=== PATIENT | female | born 1965 | race Caucasian/White ===

== ENCOUNTER → 2018-09-19 | Outpatient (CLI) | payer OTHER ==
[~2018-09-19] MED LIST: HYDR25CA92 PO
--- NOTE | 2018-09-19 21:22 | Diagnostic Imaging Report ---
INDICATION: Palpable lump in the left breast. Correlation is made with prior mammogram from 01/16/2016 and 12/17/2014. 2-D and 3-D bilateral diagnostic mammography was performed. The current study was also evaluated with a Computer Aided Detection (CAD) system. FINDINGS: Scattered fibroglandular densities are identified bilaterally. Intramammary lymph nodes in the upper-outer aspects of the left breast appear stable. No abnormalities identified at the area of the BB marker marking the palpable abnormality in the upper outer left breast. Even so ultrasound of this area will be performed. Right breast is unremarkable. There is no spiculated mass or malignant appearing microcalcifications. Axillae are unremarkable. IMPRESSION: No mammographic features suspicious for malignancy are identified. Even so, directed sonographic interrogation of the area of palpable abnormality in the upper outer left breast is recommended and will be performed today. ACR BI-RADS Category 0: Incomplete. (Needs additional imaging evaluation). Result letter will be mailed to the patient. Note: At least 10% of breast cancer is not imaged by mammography. Dictated by: Dictated on workstation # [id number]
--- NOTE | 2018-09-19 21:27 | Diagnostic Imaging Report ---
INDICATION: Palpable lump and pain in the left breast. Correlation is made with diagnostic mammogram earlier same day. FINDINGS: Sonographic interrogation of the upper-outer left breast at the area of pain and palpable abnormality was performed. No sonographic abnormality at this location is identified. There are intramammary lymph nodes in the upper-outer left breast at 01:30 location measuring 7-8 mm in size, seen previously. No new abnormality is seen. IMPRESSION: No sonographic abnormality is identified in the area of pain and palpable abnormality. There are benign-appearing intramammary lymph nodes in the upper-outer left breast. Continued clinical and self breast exam is recommended to confirm stability of the area of palpable abnormality. ACR BI-RADS Category 2: Benign findings. Dictated by: Dictated on workstation # [id number]
== END ==
LOC: RAD 13:42
PROVIDERS: ATTEND Nurse Practitioner Family
DX: N63.20 Unspecified lump in the left breast, unspecified quadrant (principal); N64.4 Mastodynia
CPT/HCPCS: 76642; 77066

== ENCOUNTER → 2020-01-01 | Outpatient (CLI) | payer OTHER ==
--- NOTE | 2020-01-01 21:11 | Diagnostic Imaging Report ---
INDICATION: Follow-up left breast lump. COMPARISON: Correlation is made with prior mammograms of 09/19/2018 and 01/16/2016. EXAMINATION: 2D and 3D bilateral diagnostic mammography was performed with CAD. The current study was also evaluated with a Computer Aided Detection (CAD) system. FINDINGS: Scattered fibroglandular densities are identified, bilaterally. There are intraparenchymal lymph nodes in the outer left breast, stable. No new mass or malignant appearing microcalcifications are seen. There are biopsy changes of right breast with marker clip in place. Axillae are unremarkable. IMPRESSION: No mammographic features suspicious for malignancy are identified. ACR BI-RADS Category 2: Benign findings. Result letter will be mailed to the patient. Note: At least 10% of breast cancer is not imaged by mammography. Dictated by: Dictated on workstation # [id number]
== END ==
LOC: RAD 13:54
PROVIDERS: ATTEND Nurse Practitioner Family
DX: N63.20 Unspecified lump in the left breast, unspecified quadrant (principal)
CPT/HCPCS: 77062; 77066

== ENCOUNTER 2020-06-29 18:44 | Inpatient (IN) | payer SELFPAY ==
[~2020-06-29] VITALS: Ht 147 cm; Wt 148.2 kg
[2020-06-29] MEDS ORDERED: NS IV 1000 ML 1,000 ML IV SCH (18:53)
[2020-06-29] MEDS ORDERED: ONDANSETRON 4 MG (ZOFRAN) ORAL DISSOLVE TAB SL STA (19:24)
--- NOTE | 2020-06-29 19:35 | Diagnostic Imaging Report ---
INDICATION: Covid positive, dizziness, nausea, inability to stay awake. TECHNIQUE: Single view chest, 7:15 p.m. CORRELATION STUDY: 03/26/2013. FINDINGS: Heart size is somewhat obscured but appears to be enlarged perhaps slightly more pronounced from prior. Vasculature also slightly more prominent. Asymmetric parenchymal densities are again demonstrated. This is most noticeable over the left lower lung plascencia with obscuration of the left heart border. A linear density with underlying lucency appears stable. Unchanged elevated right diaphragm. IMPRESSION: 1. Cardiac enlargement. This appears likely relatively stable with vascular appearing slightly more prominent from prior. 2. Asymmetric parenchymal densities are present, most noticeable over the left mid to lower lung field. A large portion is likely chronic, perhaps chronic atelectatic lung. Some of this does appear to be likely reflective of a new area of infiltrate particularly in the mid and left lower lung field. This is again unknown and atypical in appearance. Continued short-term follow-up imaging is recommended. Dictated by: Dictated on workstation # [id number]
--- NOTE | 2020-06-29 19:50 | ED Respiratory ---
General Chief Complaint: General Problems/Pain Stated Complaint: COVID +/DIZZINESS/NAUSEATED/INABLITY TO STAY AWAKE Nursing Triage Note: PT ARRIVES TO THE ER TODAY WITH C/O DIZZINESS AND SOA AND IS COVID 19 POSITIVE OF SATURDAY THIS WEEK History of Present Illness Date Seen by Provider: Jun 29, 2020 Time Seen by Provider: 19:10 Initial Comments 55-year-old female presents with generalized weakness, dizziness and shortness of air. She reports being tested for COVID on 06/27/20 and positive. Her roommate is positive as well. She denies any vomiting but has mild nausea. She has not been eating or drinking because she is so tired. She denies any history of chronic lung problems, however she did smoke in the past but hasn't for approximately 5 years. She does drink beer, daily approx 6 on average. Timing/Duration: getting worse Prior Episodes/Possible Cause: no prior episodes Modifying Factors: Improves With Albuterol Nebulizer (last 0800) Associated Symptoms: No chest pain/soreness; cough, dizziness; No facial pain, No fever/chills; headache; No lightheadedness; muscle aches, nasal congestion; No nasal drainage; shortness of breath; No sinus infection, No sore throat, No wheezing Allergies and Home Medications Allergies Coded Allergies: IV Dye, Iodine Containing (Unverified Allergy, Mild, 08/09/08) Pentazocine (Unverified Allergy, Mild, 08/09/08) Rofecoxib (Unverified Allergy, Mild, 08/09/08) Home Medications Hydroxyzine Pamoate 25 Mg Capsule, 1 EA PO QID PRN for ANXIETY FOR ITCHING Prescribed by: VONDA CRUZ on 02/10/15 1444 Patient Home Medication List Home Medication List Reviewed: Yes Review of Systems Review of Systems Constitutional: see HPI; No chills, No diaphoresis; dizziness, malaise, w eakness EENTM: see HPI, ear discharge Respiratory: see HPI, cough, dyspnea on exertion, phlegm, short of breath Cardiovascular: no symptoms reported, see HPI; No chest pain Gastrointestinal: see HPI; No diarrhea; loss of appetite, nausea; No vomiting Musculoskeletal: no symptoms reported, see HPI Skin: no symptoms reported, see HPI All Other Systems Reviewed Negative Unless Noted: Yes Past Ujslsri-Rqxvlp-Twzhck Hx Past Med/Social Hx: Reviewed Nursing Past Med/Soc Hx, Reviewed and Corrections made Patient Social History Alcohol Use: Regular Use Alcohol Beverage of Choice: Beer Recreational Drug Use: No 2nd Hand Smoke Exposure: No Recent Foreign Travel: No Contact w/Someone Who Travel: No Recent Infectious Disease Expo: Yes Immunizations Up To Date Tetanus Booster (TDap): More than 5yrs PED Vaccines UTD: Yes Seasonal Allergies Seasonal Allergies: Yes Past Medical History Surgeries: Yes (ANAL FISTULA, OVARIAN CYST, RECONSTRUCTIVE THROAT SURGERY A CHILD) Respiratory: No Cardiac: Yes Hypertension Neurological: No Reproductive Disorders: No Female Reproductive Disorders: Ovarian Cyst Sexually Transmitted Disease: No HIV/AIDS: No Genitourinary: No Gastrointestinal: No Musculoskeletal: Yes (ARTHRITIS/DEGENERATIVE IN HER BACK) Endocrine: Yes (HX OF NON INSULIN DEP) HEENT: No Cancer: No Psychosocial: Yes (alcohol dependence) Integumentary: No Blood Disorders: No Family Medical History No Pertinent Family Hx Physical Exam Vital Signs - First Documented 06/29/20 19:07 Temp 37.0 Pulse 92 Resp 20 B/P (MAP) 115/90 (98) Pulse Ox 94 O2 Delivery Room Air Capillary Refill : Less Than 3 Seconds Height: 5'7" Weight: 308lbs. oz. 139.824125do; 67.00 BMI Method:Stated General Appearance: WD/WN, mild distress, obese Eyes: Bilateral Eye Normal Inspection, Bilateral Eye PERRL, Bilateral Eye EOMI HEENT: PERRL/EOMI, normal ENT inspection, TMs normal, pharynx normal Neck: non-tender, full range of motion, supple, normal inspection Respiratory: chest non-tender, no respiratory distress, decreased breath sounds; No crackles, No rhonchi, No wheezing Cardiovascular: normal peripheral pulses, regular rate, rhythm, no edema Gastrointestinal: normal bowel sounds, non tender, soft Extremities: normal range of motion, non-tender, normal inspection, normal capillary refill Neurologic/Psychiatric: no motor/sensory deficits, alert, normal mood/affect, oriented x 3 Skin: normal color, warm/dry Lymphatic: no adenopathy Progress/Results/Core Measures Suspected Sepsis Recent Fever Within 48 Hours: Yes Infection Criteria Present: Documented Infection New/Unexplained Altered Menta: No Sepsis Screen: Possible Severe Sepsis Risk SIRS Temperature: Pulse: 92 Respiratory Rate: 20 Laboratory Tests 06/29/20 19:40: White Blood Count 6.0 Blood Pressure 115 /90 Mean: 98 Laboratory Tests 06/29/20 19:40: Creatinine 0.80, Platelet Count 221, Total Bilirubin 0.9 Results/Orders Lab Results Laboratory Tests Test 06/29/20 19:40 Range/Units White Blood Count 6.0 4.3-11.0 10^3/uL Red Blood Count 4.48 3.80-5.11 10^6/uL Hemoglobin 14.4 11.5-16.0 g/dL Hematocrit 42 35-52 % Mean Corpuscular Volume 93 80-99 fL Mean Corpuscular Hemoglobin 32 25-34 pg Mean Corpuscular Hemoglobin Concent 35 32-36 g/dL Red Cell Distribution Width 12.8 10.0-14.5 % Platelet Count 221 130-400 10^3/uL Mean Platelet Volume 9.4 9.0-12.2 fL Immature Granulocyte % (Auto) 0 % Neutrophils (%) (Auto) 57 42-75 % Lymphocytes (%) (Auto) 26 12-44 % Monocytes (%) (Auto) 16 H 0-12 % Eosinophils (%) (Auto) 0 0-10 % Basophils (%) (Auto) 0 0-10 % Neutrophils # (Auto) 3.4 1.8-7.8 10^3/uL Lymphocytes # (Auto) 1.6 1.0-4.0 10^3/uL Monocytes # (Auto) 1.0 0.0-1.0 10^3/uL Eosinophils # (Auto) 0.0 0.0-0.3 10^3/uL Basophils # (Auto) 0.0 0.0-0.1 10^3/uL Immature Granulocyte # (Auto) 0.0 0.0-0.1 10^3/uL Erythrocyte Sedimentation Rate 41 H 0-30 MM/HR D-Dimer 0.56 H 0.00-0.49 UG/ML Sodium Level 129 L 135-145 MMOL/L Potassium Level 2.9 L 3.6-5.0 MMOL/L Chloride Level 88 L 98-107 MMOL/L Carbon Dioxide Level 29 21-32 MMOL/L Anion Gap 12 5-14 MMOL/L Blood Urea Nitrogen 7 7-18 MG/DL Creatinine 0.80 0.60-1.30 MG/DL Estimat Glomerular Filtration Rate > 60 BUN/Creatinine Ratio 9 Glucose Level 120 H 70-105 MG/DL Calcium Level 8.4 L 8.5-10.1 MG/DL Corrected Calcium 8.6 8.5-10.1 MG/DL Total Bilirubin 0.9 0.1-1.0 MG/DL Aspartate Amino Transf (AST/SGOT) 90 H 5-34 U/L Alanine Aminotransferase (ALT/SGPT) 78 H 0-55 U/L Alkaline Phosphatase 75 40-136 U/L Lactate Dehydrogenase 226 H 125-220 U/L C-Reactive Protein High Sensitivity 3.26 H 0.00-0.50 MG/DL Total Protein 7.1 6.4-8.2 GM/DL Albumin 3.8 3.2-4.5 GM/DL Procalcitonin 0.07 <0.10 NG/ML Micro Results Microbiology 06/29/20 Influenza Types A,B Antigen (CORINNA) - Final, Complete My Orders Orders - EJ ROSEN Cbc With Automated Diff (06/29/20 18:53) Comprehensive Metabolic Panel (06/29/20 18:53) Fibrin Degradation Products (06/29/20 18:53) Procalcitonin (Pct) (06/29/20 18:53) Hs C Reactive Protein (06/29/20 18:53) Erythrocyte Sedimentation Rate (06/29/20 18:53) LDH (06/29/20 18:53) Chest 1 View, Ap/Pa Only (06/29/20 18:53) Ed Iv/Invasive Line Start (06/29/20 18:53) Ns Iv 1000 Ml (Sodium Chloride 0.9%) (06/29/20 18:53) Influenza A And B Antigens (06/29/20 18:53) Ondansetron Oral Dissolve Tab (Zofran (06/29/20 19:24) Ua Culture If Indicated (06/29/20 19:33) Dexamethasone Injection (Decadron Inje (06/29/20 20:01) Albuterol Inhaler (Ventolin Hfa) (06/29/20 20:02) Potassium Chloride (Tablet) (Klor Con Ta (06/29/20 20:21) Covid-19 External Lab Results (06/29/20 21:14) Isolation Central Supply Req (06/29/20 21:14) Medications Given in ED Current Medications Medications Dose Ordered Sig/Diana Route Start Time Stop Time Status Last Admin Dose Admin Albuterol Sulfate 18 gm STK-MED ONCE IH 06/29/20 20:02 06/29/20 20:05 DC 06/29/20 20:00 18 GM Dexamethasone Sodium Phosphate 10 mg STK-MED ONCE .ROUTE 06/29/20 20:01 06/29/20 20:04 DC 06/29/20 20:00 10 MG Vital Signs/I&O 06/29/20 19:07 Temp 37.0 Pulse 92 Resp 20 B/P (MAP) 115/90 (98) Pulse Ox 94 O2 Delivery Room Air Capillary Refill : Less Than 3 Seconds Blood Pressure Mean: 98 Progress Note : Time: 19:10 Progress Note Patient seen and evaluated, will obtain labs, chest x-ray, normal saline 1 L per IV. SaO2 92-95%, on RA. With O2 per NC at 1 L, SaO2 94-96%. 1999 IV established, will give Decadron 10 mg IV. Albuterol MDI 2 puffs with Spacer. 2029 SaO2 > 96% with O2 at 1 L, will trial RA. K+ 20 mEq po for K+ 2.9. 2099 SaO2 86-94% on RA. Discussed options with patient, with periods of hypoxia, it would be preferred to keep her overnight on Observation. Patient agreeable, O2 per NC at 2 L, 92-96%. 2114 Dr Mas agreed to admit patient. Will obtain ABGs. Diagnostic Imaging Diagonstic Imaging: Xray Plain Films/CT/US/NM/MRI: chest Comments NAME: LYDIA ALANIZ [facility] REC#: [id number] PT STATUS: REG ER : 1965 PHYSICIAN: EJ ROSEN ADMIT DATE: 06/29/20/ER Draft Date of Exam:06/29/20 CHEST 1 VIEW, AP/PA ONLY INDICATION: Covid positive, dizziness, nausea, inability to stay awake. TECHNIQUE: Single view chest, 7:15 p.m. CORRELATION STUDY: 03/26/2013. FINDINGS: Heart size is somewhat obscured but appears to be enlarged perhaps slightly more pronounced from prior. Vasculature also slightly more prominent. Asymmetric parenchymal densities are again demonstrated. This is most noticeable over the left lower lung plascencia with obscuration of the left heart border. A linear density with underlying lucency appears stable. Unchanged elevated right diaphragm. IMPRESSION: 1. Cardiac enlargement. This appears likely relatively stable with vascular appearing slightly more prominent from prior. 2. Asymmetric parenchymal densities are present, most noticeable over the left mid to lower lung field. A large portion is likely chronic, perhaps chronic atelectatic lung. Some of this does appear to be likely reflective of a new area of infiltrate particularly in the mid and left lower lung field. This is again unknown and atypical in appearance. Continued short-term follow-up imaging is recommended. Reviewed: Reviewed by Me Departure Impression Primary Impression: COVID-19 Additional Impressions: Hypoxia Hyponatremia Hypokalemia Shortness of breath Alcohol abuse Disposition: ADMITTED INPATIENT Condition: Stable Admissions Decision to Admit Reason: Admit from ER (General) Decision to Admit/Date: Jun 29, 2020 Time/Decision to Admit Time: 21:15 Departure-Patient Inst. Referrals: [facility] (PCP/Family) Primary Care Physician Copy Copies To 1: LILA SAHNI AMY ARNP Jun 29, 2020 19:50
[2020-06-29 19:56] LABS: BASOPHILS % (AUTO) 0 % (0-10); EOSINOPHILS % (AUTO) 0 % (0-10); HEMATOCRIT 42 % (35-52); HEMOGLOBIN 14.4 g/dL (11.5-16.0); LYMPHOCYTES # (AUTO) 1.6 10^3/uL (1.0-4.0); LYMPHOCYTES % (AUTO) 26 % (12-44); MEAN CORPUSCULAR HEMOGLOBIN 32 pg (25-34); MEAN CORPUSCULAR HGB CONC 35 g/dL (32-36); MEAN CORPUSCULAR VOLUME 93 fL (80-99); MEAN PLATELET VOLUME 9.4 fL (9.0-12.2); MONOCYTES % (AUTO) 16 % (0-12); NEUTROPHILS # (AUTO) 3.4 10^3/uL (1.8-7.8); NEUTROPHILS % (AUTO) 57 % (42-75); PLATELET COUNT 221 10^3/uL (130-400)
[2020-06-29] MEDS ORDERED: RT-ALBUTEROL INHALER HFA (VENTOLIN HFA) 18 GM IH ONE (20:02)
[2020-06-29 20:09] LABS: ALBUMIN 3.8 GM/DL (3.2-4.5); POTASSIUM 2.9 MMOL/L (3.6-5.0)
[2020-06-29 20:10] LABS: CALCIUM 8.4 MG/DL (8.5-10.1)
[2020-06-29 20:11] LABS: GLUCOSE 120 MG/DL (70-105)
[2020-06-29 20:12] LABS: TOTAL PROTEIN 7.1 GM/DL (6.4-8.2)
[2020-06-29 20:13] LABS: BILIRUBIN,TOTAL 0.9 MG/DL (0.1-1.0); CARBON DIOXIDE 29 MMOL/L (21-32)
[2020-06-29 20:15] LABS: ALKALINE PHOSPHATASE 75 U/L (40-136); GFR ESTIMATED > 60
[2020-06-29 20:16] LABS: BUN/CREATININE RATIO 9
[2020-06-29 20:18] LABS: ALANINE AMINOTRANSFERASE 78 U/L (0-55)
[2020-06-29] MEDS ORDERED: KCL 10 MEQ TAB (MICRO K) PO STA (20:21)
[2020-06-29 20:35] LABS: CHLORIDE 88 MMOL/L (98-107); SODIUM 129 MMOL/L (135-145)
[2020-06-29 20:39] LABS: ERYTHROCYTE SEDIMENTATION RATE 41 MM/HR (0-30)
[2020-06-29 21:53] LABS: ABG BASE EXCESS 3.3 MMOL/L (-2.5-2.5); ABG OXYGEN SATURATION 95 % (94-100); ABG PCO2 43 MMHG (35-45); ABG PH 7.42 (7.37-7.43); ABG PO2 79 MMHG (79-93); ABG TCO2 28.7 MMOL/L (21.0-31.0)
--- NOTE | 2020-06-29 22:00 | NUR ---
1ST ATTEMPT TO CALL REPORT. RN TO RETURN CALL.
[2020-06-29 22:04] LABS: ALLENS TEST NEG; INSPIRED O2 2L; PATIENT TEMP 98.9; VENTILATOR NO
[2020-06-29 22:11] LABS: PROTHROMBIN TIME PATIENT 13.2 SEC (12.2-14.7)
[2020-06-29] MEDS ORDERED: NS IV 1000 ML 1,000 ML ONE (22:53)
--- NOTE | 2020-06-29 22:55 | NUR ---
Lydia Ho, admitted to room 432-1, with an admitting diagnosis of Covid-19, Hypoxemia, SOA, alcohol Abuse , on 06/29/20 from ED, accompanied by Staff.LYDIA HO introduced to surroundings, call light, bed controls, phone, TV, temperature control, lights, meal times, smoking policy, visitor policy, side rail policy, bathrooms and showers. Patient Rights given to patient in the handbook.LYDIA HO verbalizes understanding that [facility] is not responsible for the loss or damage to any personal effects or valuables that are kept in the patients posession during their hospitalization.
[2020-06-29 22:56] VITALS: BP 116/65
[2020-06-29] MEDS ORDERED: ONDANSETRON 4 MG/2 ML (SDV) Z0FRAN IV PRN (23:30)
[2020-06-29] MEDS ORDERED: LORazepam INJ 2 MG/ML (ATIVAN) VIAL IV PRN (23:30)
[2020-06-29] MEDS ORDERED: MECLIZINE 25 MG (ANTIVERT) TAB PO PRN (23:30)
[2020-06-29] MEDS ORDERED: IBUPROFEN 600 MG (MOTRIN) TAB PO PRN (23:30)
[2020-06-29] MEDS: NS IV 1000 ML 1,000 ML IV SCH (23:33)
[2020-06-29] MEDS: dexAMETHasone 6 MG TAB (DECADRON) PO SCH (23:47)
[2020-06-30] VITALS (9 sets, daily range): BP systolic 114–125; BP diastolic 65–77
[2020-06-30] MEDS ORDERED: RT-ALBUTEROL INHALER HFA (VENTOLIN HFA) 18 GM IH SCH (02:00)
[2020-06-30] MEDS ORDERED: RT-ALBUTEROL INHALER HFA (VENTOLIN HFA) 18 GM IH PRN (02:00)
[2020-06-30] MEDS ORDERED: HYDROcodone/APAP 5 MG/325 MG (LORTAB) TAB PO PRN (04:45)
[2020-06-30] MEDS ORDERED: CALCIUM CARBONATE 500 MG (TUMS) TAB.CHEW PO PRN (04:45)
[2020-06-30] MEDS ORDERED: diphenhydrAMINE 25 MG TAB (BENADRYL) PO PRN (04:45)
[2020-06-30] MEDS ORDERED: DOCUSATE SODIUM 100 MG (COLACE) CAP PO PRN (04:45)
[2020-06-30 06:36] LABS: BASOPHILS % (AUTO) 0 % (0-10); EOSINOPHILS % (AUTO) 0 % (0-10); HEMATOCRIT 41 % (35-52); LYMPHOCYTES # (AUTO) 0.5 10^3/uL (1.0-4.0); LYMPHOCYTES % (AUTO) 18 % (12-44); MEAN CORPUSCULAR HEMOGLOBIN 32 pg (25-34); MEAN CORPUSCULAR HGB CONC 34 g/dL (32-36); MEAN CORPUSCULAR VOLUME 94 fL (80-99); MEAN PLATELET VOLUME 9.7 fL (9.0-12.2); MONOCYTES # (AUTO) 0.1 10^3/uL (0.0-1.0); MONOCYTES % (AUTO) 3 % (0-12); NEUTROPHILS # (AUTO) 2.1 10^3/uL (1.8-7.8); NEUTROPHILS % (AUTO) 77 % (42-75); PLATELET COUNT 218 10^3/uL (130-400); WHITE BLOOD COUNT 2.7 10^3/uL (4.3-11.0)
[2020-06-30 06:48] LABS: ALANINE AMINOTRANSFERASE 73 U/L (0-55); ALBUMIN 3.8 GM/DL (3.2-4.5); ALKALINE PHOSPHATASE 81 U/L (40-136); BILIRUBIN,TOTAL 0.7 MG/DL (0.1-1.0); BUN/CREATININE RATIO 11; CALCIUM 8.4 MG/DL (8.5-10.1); CARBON DIOXIDE 24 MMOL/L (21-32); CHLORIDE 89 MMOL/L (98-107); CREATININE SERUM 0.75 MG/DL (0.60-1.30); GFR ESTIMATED > 60; GLUCOSE 200 MG/DL (70-105); POTASSIUM 3.1 MMOL/L (3.6-5.0); SODIUM 126 MMOL/L (135-145)
--- NOTE | 2020-06-30 07:20 | Pulmonary Consultation ---
History of Present Illness History of Present Illness Date Seen by Provider: Jun 30, 2020 Time Seen by Provider: 07:12 Date of Admission History of Present Illness 55yo who tested positive for COVID on 06/27 presented to ED secondary to worsening SOB, weakness, and dizziness. No hx of lung disease. She does drink 6 beers per day. Denies CP Allergies and Home Medications Allergies Coded Allergies: Iodinated Contrast Media (Unverified Allergy, Mild, 08/09/08) pentazocine (Unverified Allergy, Mild, 08/09/08) rofecoxib (Unverified Allergy, Mild, 08/09/08) Home Medications Hydroxyzine Pamoate 25 Mg Capsule, 1 EA PO QID PRN for ANXIETY FOR ITCHING Prescribed by: VONDA CRUZ on 02/10/15 1444 Past Xbpzrso-Jlazuq-Eldmup Hx Past Med/Social Hx: Reviewed Nursing Past Med/Soc Hx, Reviewed and Corrections made Patient Social History Alcohol Use: Regular Use Alcohol Beverage of Choice: Beer Recreational Drug Use: No 2nd Hand Smoke Exposure: No Recent Foreign Travel: No Contact w/Someone Who Travel: No Recent Infectious Disease Expo: Yes Immunizations Up To Date Tetanus Booster (TDap): More than 5yrs PED Vaccines UTD: Yes Seasonal Allergies Seasonal Allergies: Yes Past Medical History Surgeries: Yes (ANAL FISTULA, OVARIAN CYST, RECONSTRUCTIVE THROAT SURGERY A CHILD) Respiratory: No Cardiac: Yes Hypertension Neurological: No : No Reproductive Disorders: No Female Reproductive Disorders: Ovarian Cyst Sexually Transmitted Disease: No HIV/AIDS: No Genitourinary: No Gastrointestinal: No Musculoskeletal: Yes (ARTHRITIS/DEGENERATIVE IN HER BACK) Endocrine: Yes (HX OF NON INSULIN DEP) HEENT: No Cancer: No Psychosocial: Yes (alcohol dependence) Integumentary: No Blood Disorders: No Family Medical History Cancer of mouth 19 FATHER, Cardiovascular disease 19 MOTHER, G8 BROTHER Hypertension G8 BROTHER No Pertinent Family Hx Review of Systems Time Seen by Provider: 07:15 Constitutional: Fever, Chills, Sweats, Weakness, Malaise, Other Eyes: No: Pain, Vision change, Conjunctivae inflammation, Eyelid inflammation, Other, Redness ENT: Nose congestion; No: Ear pain, Ear discharge, Nose pain, Nose discharge, Mouth pain, Mouth swelling, Throat pain, Throat swelling, Other Respiratory: Cough, Dry, Shortness of breath, SOB with excertion; No: Hemoptysis Cardiovascular: Paroxysmal Noc. Dyspnea Gastrointestinal: No: Nausea, Vomiting, Abdominal Pain Genitourinary: No Dysuria, No Frequency Sepsis Event Evaluation Height, Weight, BMI Height: 5'7" Weight: 308lbs. oz. 139.416977zz; 68.58 BMI Method:Stated Exam Exam Vital Signs Date Time Temp Pulse Resp B/P (MAP) Pulse Ox O2 Delivery O2 Flow Rate FiO2 06/30/20 04:08 36.1 80 22 122/77 (92) 96 Nasal Cannula 1.50 06/30/20 01:47 36.6 86 94 21 06/30/20 00:00 36.6 86 20 116/65 (82) 92 Nasal Cannula 1.50 06/29/20 23:26 92 Nasal Cannula 1.50 06/29/20 22:56 Nasal Cannula 1.50 06/29/20 22:56 36.6 86 20 116/65 92 Nasal Cannula 1.50 06/29/20 22:28 89 18 118/64 95 Nasal Cannula 1.50 06/29/20 19:07 37.0 92 20 115/90 (98) 94 Room Air I & O 06/30/20 07:00 Intake Total 950 ml Balance 950 ml Height & Weight Height: 5'7" Weight: 308lbs. oz. 139.610572ol; 68.58 BMI Method:Stated Capillary Refill: Less Than 3 Seconds Gastrointestinal: normal bowel sounds, non tender, soft Results Lab Laboratory Tests 06/29/20 19:40 06/30/20 06:10 Assessment/Plan Assessment/Plan COVID-19 PNA with Hypoxia -CXR reviewed --Check CT of chest -Start Remdesivir and CVP -Decadron Hyponatremia Hypokalemia -Replace -Check mg, and phos Alcohol abuse -Monitor for withdrawal Obesity SUMA BUTLER DO Jun 30, 2020 07:20
--- NOTE | 2020-06-30 07:40 | Diagnostic Imaging Report ---
INDICATION: Pneumonia COMPARISON: 06/29/2020 FINDINGS: Single frontal radiographic view of the chest was obtained and demonstrates persistent massive cardiomegaly. Pulmonary vasculature is within normal limits. Left perihilar parenchymal opacities persist and are stable compared to prior exam. Right lung is relatively clear. There is no large effusion or pneumothorax on either side. Osseous structures show no acute abnormalities. IMPRESSION: 1. Stable marked cardiomegaly. No evidence of overt failure. 2. Stable left perihilar airspace disease. Dictated by: Dictated on workstation # [id number]
[2020-06-30 07:51] LABS: MAGNESIUM 1.9 MG/DL (1.6-2.4)
[2020-06-30] MEDS: RT-ALBUTEROL INHALER HFA (VENTOLIN HFA) 18 GM IH SCH ×4 (07:57→20:36)
[2020-06-30] MEDS ORDERED: REMDESIVIR INJ 200 MG in NS (IVPB) 210 ML IV NR (08:00)
[2020-06-30] MEDS: NS IV 1000 ML 1,000 ML IV SCH (08:24)
[2020-06-30] MEDS: POTASSIUM CL 10MEQ/50ML IVPB 50 ML IV SCH ×4 (08:25→09:34)
[2020-06-30] MEDS: ENOXAPARIN 60 MG/0.6 ML (LOVENOX) SYR SC SCH ×2 (08:28→21:02)
[2020-06-30] MEDS: SENNA W/DOCUSATE (SENOKOT S) TABLET PO SCH ×2 (08:28→21:02)
[2020-06-30] MEDS ORDERED: KCL 20 MEQ TAB (K-DUR) PO ONE (09:00)
[2020-06-30] MEDS ORDERED: LOSA50TA63 PO ×2 (09:33→11:05)
[2020-06-30] MEDS ORDERED: LEVO25TA5 PO (09:33)
[2020-06-30] MEDS ORDERED: LOVA10TA PO ×2 (09:33→11:05)
[2020-06-30] MEDS ORDERED: PARO-49 PO (09:33)
[2020-06-30] MEDS ORDERED: HYDR25TA4 PO ×2 (09:33→11:05)
[2020-06-30 10:23] LABS: BILIRUBIN,URINE NEGATIVE (NEGATIVE); CLARITY,URINE CLEAR; COLOR,URINE YELLOW; GLUCOSE, URINE (UA) NEGATIVE (NEGATIVE); KETONES,URINE NEGATIVE (NEGATIVE); LEUKOCYTE ESTERASE ,URINE NEGATIVE (NEGATIVE); NITRITE,URINE NEGATIVE (NEGATIVE); PH,URINE 6.5 (5-9); PROTEIN,URINE NEGATIVE (NEGATIVE)
[2020-06-30 10:30] LABS: BACTERIA,URINE FEW /HPF; RBC,URINE RARE /HPF; WBC,URINE 0-2 /HPF
[2020-06-30 10:39] LABS: AMPHETAMINE SCREEN, URINE NEGATIVE (NEGATIVE); BARBITURATE SCREEN URINE NEGATIVE (NEGATIVE); BENZODIAZEPINES SCREEN URINE NEGATIVE (NEGATIVE); CANNABINOID SCREEN, URINE NEGATIVE (NEGATIVE); COCAINE SCREEN URINE NEGATIVE (NEGATIVE); METHADONE STAT NEGATIVE (NEGATIVE); METHAMPHETAMINE SCREEN URINE S NEGATIVE (NEGATIVE); OPIATE SCREEN URINE NEGATIVE (NEGATIVE); OXYCODONE STAT NEGATIVE (NEGATIVE); PROPOXYPHENE STAT NEGATIVE (NEGATIVE); TRICYCLIC ANTIDEPRESSANTS SCRE NEGATIVE (NEGATIVE)
[2020-06-30] MEDS ORDERED: LEVO50TA6 PO (11:05)
[2020-06-30] MEDS ORDERED: PARO20TA5 PO (11:05)
--- NOTE | 2020-06-30 11:05 | NUR ---
SPOKE WITH THE PT (I CALLED HER ROOM PHONE) AND CALLED [facility] TO COMPLETE THE MED REC FILL DATES FROM [facility]: 05-20-2020 PAROXETINE 20MG #30/30DS 05-20-2020 LOSARTAN 50MG #60/30DS- ACCORDING TO THE PT SHE TAKES 2 TABS ONCE DAILY 05-20-2020 LEVOTHYROXINE 50MCG #30/30DS 05-20-2020 HCTZ 25MG #30/30DS 06-25-2020 LOVASTATIN 10MG #30/30DS PT DENIES TAKING ANY OTC MEDS
--- NOTE | 2020-06-30 11:43 | History & Physical-Hospitalist ---
History of Present Illness HPI/Chief Complaint CC: Covid-19 pneumonia with hypoxia HPI: This is a 55yoWF who presented five days after testing positive for Covid- 19 when they tested her at [facility]. Dr. Schneider was consulted and placed her on protocol medication for Covid-19 and remains on oxygen supplementation. CT angiogram of the lungs will be obtained. Will heplock IV fluid so she can move around. Pt denies any pain. Source: patient Exam Limitations: no limitations Date Seen 06/30/20 Time Seen by a Provider: 11:30 Attending Physician Ella Mas DO [facility] Referring Physician Date of Admission Jun 29, 2020 at 21:43 Home Medications & Allergies Home Medications Reviewed patient Home Medication Reconciliation performed by pharmacy medication reconciliations therapy technician and/or nursing. Patients Allergies have been reviewed. Allergies Allergies Coded Allergies Iodinated Contrast Media (Unverified Allergy, Mild, 08/09/08) pentazocine (Unverified Allergy, Mild, 08/09/08) rofecoxib (Unverified Allergy, Mild, 08/09/08) Past Snncizy-Twjpsz-Utqxgr Hx Past Med/Social Hx: Reviewed Nursing Past Med/Soc Hx, Reviewed and Corrections made Patient Social History Marrital Status: single Employed/Student: employed Alcohol Use: Regular Use Alcohol Beverage of Choice: Beer Recreational Drug Use: No Smoking Status: Former Smoker 2nd Hand Smoke Exposure: No Recent Foreign Travel: No Contact w/other who traveled: No Recent Infectious Disease Expo: Yes Immunizations Up To Date Tetanus Booster (TDap): More than 5yrs Pediatric: Yes Seasonal Allergies Seasonal Allergies: Yes Past Medical History Cardiac: Hypertension : No Reproductive: No Sexually Transmitted Disease: No HIV/AIDS: No Female Reproductive Disorders: Ovarian Cyst History of Blood Disorders: No Family History Cancer of mouth 19 FATHER, Cardiovascular disease 19 MOTHER, G8 BROTHER Hypertension G8 BROTHER No Pertinent Family Hx Review of Systems Constitutional: see HPI, weakness Respiratory: cough, dyspnea on exertion, short of breath, wheezing Physical Exam Physical Exam Vital Signs Vital Signs - First Documented 06/29/20 06/29/20 06/30/20 19:07 22:28 01:47 Temp 37.0 Pulse 92 Resp 20 B/P (MAP) 115/90 (98) Pulse Ox 94 O2 Delivery Room Air O2 Flow Rate 1.50 FiO2 21 Capillary Refill : Less Than 3 Seconds Height, Weight, BMI Height: 5'7" Weight: 308lbs. oz. 139.233772id; 68.58 BMI Method:Stated General Appearance: No Apparent Distress, Chronically ill, Obese Eyes: Right Eye Normal Inspection, Right Eye PERRL HEENT: PERRL/EOMI, Normal ENT Inspection, Pharynx Normal, Moist Mucous Membranes Neck: Full Range of Motion, Normal Inspection, Non Tender Respiratory: Chest Non Tender, No Accessory Muscle Use, No Respiratory Distress, Decreased Breath Sounds Cardiovascular: Regular Rate, Rhythm, No Edema, No Gallop, No JVD, No Murmur, Normal Peripheral Pulses Gastrointestinal: Normal Bowel Sounds, No Organomegaly, No Pulsatile Mass, Non Tender, Soft Back: Normal Inspection, No CVA Tenderness, No Vertebral Tenderness Extremity: Normal Capillary Refill, Normal Inspection, Normal Range of Motion, Non Tender, No Calf Tenderness, No Pedal Edema Neurologic/Psychiatric: Alert, Oriented x3, No Motor/Sensory Deficits, Normal Mood/Affect Skin: Normal Color, Warm/Dry Lymphatic: No Adenopathy Results Results/Procedures Labs Laboratory Tests 06/29/20 19:40 06/30/20 06:10 Patient resulted labs reviewed. Assessment/Plan Admission Diagnosis Assessment: COVID-19 PNA Hypoxia Obesity Former smoker Plan: COVID protocol O2 Monitor labs Admission Status: Inpatient Order (span 2 midnights) Reason for Inpatient Admission: COVID Diagnosis/Problems Diagnosis/Problems (1) COVID-19 Status: Acute (2) Shortness of breath Status: Acute (3) Hypoxia Status: Acute (4) Hyponatremia Status: Acute (5) Hypokalemia Status: Acute (6) Alcohol abuse Status: Acute Clinical Quality Measures DVT/VTE Risk/Contraindication: Risk Factor Score Per Nursin RFS Level Per Nursing on Admit: 4+=Very High ELLA MAS DO Jun 30, 2020 11:43
--- NOTE | 2020-06-30 12:15 | Diagnostic Imaging Report ---
EXAMINATION: CT Chest without contrast. TECHNIQUE: Multiple contiguous axial images were obtained through the chest without the use of intravenous contrast. All CT scans use one or more of the following dose optimizing techniques: automated exposure control, MA and/or KvP adjustment based on a patient size and exam type, or iterative reconstruction. HISTORY: Covid 19 COMPARISON: None available. FINDINGS: There are mild to moderate peripheral and peribronchovascular areas of groundglass consistent with Covid 19. A few linear areas of atelectasis are present. No pleural effusion. No pneumothorax. No suspicious nodules. Right hemidiaphragm is elevated. There is no axillary or supraclavicular lymphadenopathy. There is no mediastinal lymphadenopathy. There is an anterior mediastinal conduit from the cervical esophagus to the stomach. [place] esophagus is not well seen, potentially resected. Heart size is normal. There are mild coronary artery calcifications. No pericardial effusion. Aorta is normal in caliber. Limited views of the upper abdomen are unremarkable. There are no suspicious osseus lesions. IMPRESSION: 1. Mild to moderate peripheral and peribronchovascular areas of groundglass consistent with Covid 19. 2. 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 Dictated by: Dictated on workstation # [id number]
--- NOTE | 2020-06-30 15:18 | NUR ---
"RD ASSESSMENT PMHx: HTN; DM; ETOH dependence; PT INTERACTION: Received dietary consult for MST score. Note pt is currently in COVID isolation, per chart review. Note all diet information for nutrition assessment is per Day RN, or per chart review. Day states current appetite appears great. Note PO intake 75% x1meal, per chart review. Day states pt does not prefer current supplementation order and has asked it to be removed from her trays. Day states no issues with nausea, vomiting, or constipation that she is aware of. Day states pt has chronic issues with diarrhea. Note last BM was 06/20, and pt currently on bowel regimen of senna BID, per chart review. Note unable to determine current level of DM management, and note unable to determine recent HbA1c, per chart review. Note unable to determine recent wt hx, per chart review. Note unable to conduct visual assessment due to isolation precautions. Note pt is morbidly obese, with BMI of 68.6, per chart review. Given PO intake, limited wt hx, and no visual assessment, this RD is unable to determine if pt meets criteria for malnutrition per ASPEN guidelines. ABNORMAL NUTRITION-RELATED LAB VALUES LOW: Na 126; K 3.1; Cl 89; Ca 8.4; HIGH: glu 200; AST 65; ALT 73 Est. kcal needs: 4416-4375 kcal | 25-30 kcal/kg Est. Pro needs: 41-49 g Pro | 0.8-1.0 g Pro/kg PES STATEMENT: Given current PO intake, no nutrition diagnosis at this time (NO-1.1). INTERVENTION: Continue with current diet order of Regular diet. Pt may benefit from consistent CHO diet if blood glucose levels become elevated. DC current supplementation order of Ensure Enlive with meals TID, for pt preference. Did not offer diet education on DM management, d/t COVID isolation. Will continue to follow and reassess as pt needs, intake, and status change. Mando Swenson, MS RD LD"
[2020-06-30] MEDS: SIMvastatin 10 MG (ZOCOR) TAB PO SCH (21:01)
[2020-06-30] MEDS: dexAMETHasone 6 MG TAB (DECADRON) PO SCH (21:01)
[2020-06-30] MEDS: ACETAMINOPHEN 325 MG TABLET PO PRN (21:02)
[2020-07-01] MEDS: NS IV 1000 ML 1,000 ML IV SCH ×2 (00:02→14:50)
[2020-07-01 00:11] VITALS: BP 109/65
[2020-07-01 04:01] VITALS: BP 115/79
[2020-07-01] MEDS: LEVOTHYROXINE 50 MCG (LEVOTHROID) TAB PO SCH (06:19)
[2020-07-01 06:27] LABS: HEMOGLOBIN 14.4 g/dL (11.5-16.0); MEAN PLATELET VOLUME 9.6 fL (9.0-12.2); WHITE BLOOD COUNT 9.4 10^3/uL (4.3-11.0)
[2020-07-01 06:40] LABS: ALBUMIN 3.8 GM/DL (3.2-4.5); CHLORIDE 96 MMOL/L (98-107); POTASSIUM 3.9 MMOL/L (3.6-5.0); SODIUM 135 MMOL/L (135-145)
[2020-07-01 06:42] LABS: CALCIUM 8.7 MG/DL (8.5-10.1)
[2020-07-01 06:43] LABS: GLUCOSE 151 MG/DL (70-105); TOTAL PROTEIN 7.2 GM/DL (6.4-8.2)
[2020-07-01 06:44] LABS: CARBON DIOXIDE 27 MMOL/L (21-32)
[2020-07-01 06:45] LABS: BILIRUBIN,TOTAL 0.4 MG/DL (0.1-1.0)
[2020-07-01 06:46] LABS: ALKALINE PHOSPHATASE 76 U/L (40-136); CREATININE SERUM 0.75 MG/DL (0.60-1.30); GFR ESTIMATED > 60
[2020-07-01 06:48] LABS: BUN/CREATININE RATIO 11
[2020-07-01 06:49] LABS: ALANINE AMINOTRANSFERASE 56 U/L (0-55)
[2020-07-01] MEDS ORDERED: dexAMETHasone 6 MG TAB (DECADRON) PO SCH (07:00)
[2020-07-01 08:00] VITALS: BP 122/74
[2020-07-01] MEDS: ENOXAPARIN 60 MG/0.6 ML (LOVENOX) SYR SC SCH ×2 (08:03→20:42)
[2020-07-01] MEDS: HYDROCHLOROTHIAZIDE 25 MG (HCTZ) TAB PO SCH (08:04)
[2020-07-01] MEDS: PARoxetine 20 MG (PAXIL) TAB PO SCH (08:04)
[2020-07-01] MEDS: LOSARTAN 100 MG (COZAAR) TABLET PO SCH (08:04)
[2020-07-01] MEDS: SENNA W/DOCUSATE (SENOKOT S) TABLET PO SCH ×2 (08:04→20:43)
[2020-07-01] MEDS: REMDESIVIR INJ 100 MG in NS (IVPB) 230 ML IV SCH (08:04)
[2020-07-01] MEDS: RT-ALBUTEROL INHALER HFA (VENTOLIN HFA) 18 GM IH SCH ×4 (09:23→20:20)
--- NOTE | 2020-07-01 11:49 | Progress Note - Hospitalist ---
Subjective HPI/CC On Admission Date Seen by Provider: Jul 01, 2020 Time Seen by Provider: 11:00 CC: Covid-19 pneumonia with hypoxia HPI: This is a 55yoWF who presented five days after testing positive for Covid- 19 when they tested her at [facility]. Dr. Schneider was consulted and placed her on protocol medication for Covid-19 and remains on oxygen supplementation. CT angiogram of the lungs will be obtained. Will heplock IV fluid so she can move around. Pt denies any pain. Subjective/Events-last exam Patient doing better Just had a shower Dyspnea discussed No pain Tolerating meds Review of Systems General: Fatigue Pulmonary: Dyspnea Objective Exam Vital Signs Vital Signs Date Time Temp Pulse Resp B/P (MAP) Pulse Ox O2 Delivery O2 Flow Rate FiO2 07/02/20 05:01 36.1 77 16 100/53 (69) 97 Nasal Cannula 2.00 06/30/20 01:47 21 Capillary Refill : Less Than 3 Seconds General Appearance: No Apparent Distress, WD/WN, Chronically ill Respiratory: Chest Non Tender, Lungs Clear, No Accessory Muscle Use, No Respiratory Distress, Decreased Breath Sounds Cardiovascular: Regular Rate, Rhythm, No Edema, No Gallop, No JVD, No Murmur, Normal Peripheral Pulses Neurologic/Psychiatric: Alert, Oriented x3, No Motor/Sensory Deficits, Normal Mood/Affect Results/Procedures Lab Patient resulted labs reviewed. Assessment/Plan Assessment and Plan Assess & Plan/Chief Complaint Assessment: COVID-19 PNA Hypoxia Dyspnea Former smoker Obesity Plan: COVID 19 meds O2 Diagnosis/Problems Diagnosis/Problems (1) COVID-19 Status: Acute (2) Shortness of breath Status: Acute (3) Hypoxia Status: Acute (4) Hyponatremia Status: Acute (5) Hypokalemia Status: Acute (6) Alcohol abuse Status: Acute Clinical Quality Measures DVT/VTE Risk/Contraindication: Risk Factor Score Per Nursin RFS Level Per Nursing on Admit: 4+=Very High JANEY HUMMEL DO Jul 01, 2020 11:49
[2020-07-01 12:00] VITALS: BP 128/74
[2020-07-01] MEDS: ACETAMINOPHEN 325 MG TABLET PO PRN (14:51)
--- NOTE | 2020-07-01 15:49 | NUR ---
PATIENT'S BROTHER, LILIAN CALLED TO CHECK ON PATIENT. PW VERIFIED. PATIENT UPDATE GIVEN. NO FURTHER QUESTIONS, APPRECIATIVE OF CARE.
[2020-07-01 15:59] VITALS: BP 104/55
[2020-07-01 19:54] VITALS: BP 101/66
[2020-07-01] MEDS: SIMvastatin 10 MG (ZOCOR) TAB PO SCH (20:41)
[2020-07-01] MEDS: dexAMETHasone 6 MG TAB (DECADRON) PO SCH (20:42)
[2020-07-02] VITALS (7 sets, daily range): BP systolic 100–125; BP diastolic 53–67
[2020-07-02] MEDS: NS IV 1000 ML 1,000 ML IV SCH (04:07)
[2020-07-02] MEDS: LEVOTHYROXINE 50 MCG (LEVOTHROID) TAB PO SCH (06:21)
[2020-07-02 06:49] LABS: HEMOGLOBIN 13.2 g/dL (11.5-16.0); MEAN PLATELET VOLUME 9.6 fL (9.0-12.2); WHITE BLOOD COUNT 5.8 10^3/uL (4.3-11.0)
--- NOTE | 2020-07-02 06:52 | Progress Note - Hospitalist ---
Subjective HPI/CC On Admission Date Seen by Provider: Jul 02, 2020 Time Seen by Provider: 11:30 CC: Covid-19 pneumonia with hypoxia HPI: This is a 55yoWF who presented five days after testing positive for Covid- 19 when they tested her at [facility]. Dr. Schneider was consulted and placed her on protocol medication for Covid-19 and remains on oxygen supplementation. CT angiogram of the lungs will be obtained. Will heplock IV fluid so she can move around. Pt denies any pain. Subjective/Events-last exam Patient doing well Weaning off O2 Dyspnea is an issue No pain BM+ Shower today Review of Systems General: Fatigue Pulmonary: Dyspnea Objective Exam Vital Signs Vital Signs Date Time Temp Pulse Resp B/P (MAP) Pulse Ox O2 Delivery O2 Flow Rate FiO2 07/02/20 17:34 96 Nasal Cannula 1.00 07/02/20 11:35 36.9 80 18 125/67 (86) 06/30/20 01:47 21 Capillary Refill : Less Than 3 Seconds General Appearance: No Apparent Distress, WD/WN Respiratory: Chest Non Tender, Lungs Clear, Normal Breath Sounds, No Accessory Muscle Use, No Respiratory Distress Cardiovascular: Regular Rate, Rhythm, No Edema, No Gallop, No JVD, No Murmur, Normal Peripheral Pulses Neurologic/Psychiatric: Alert, Oriented x3, No Motor/Sensory Deficits, Normal Mood/Affect Results/Procedures Lab Laboratory Tests 07/02/20 06:38 Patient resulted labs reviewed. Assessment/Plan Assessment and Plan Assess & Plan/Chief Complaint Assessment: COVID-19 PNA Hypoxia Dyspnea Former smoker Obesity Plan: COVID 19 meds O2 Diagnosis/Problems Diagnosis/Problems (1) COVID-19 Status: Acute (2) Shortness of breath Status: Acute (3) Hypoxia Status: Acute (4) Hyponatremia Status: Acute (5) Hypokalemia Status: Acute (6) Alcohol abuse Status: Acute Clinical Quality Measures DVT/VTE Risk/Contraindication: Risk Factor Score Per Nursin RFS Level Per Nursing on Admit: 4+=Very High JANEY HUMMEL DO Jul 02, 2020 06:52
[2020-07-02 07:03] LABS: ALBUMIN 3.4 GM/DL (3.2-4.5); CHLORIDE 96 MMOL/L (98-107); POTASSIUM 3.7 MMOL/L (3.6-5.0); SODIUM 135 MMOL/L (135-145)
[2020-07-02 07:05] LABS: CALCIUM 8.3 MG/DL (8.5-10.1)
[2020-07-02 07:06] LABS: GLUCOSE 160 MG/DL (70-105); TOTAL PROTEIN 6.3 GM/DL (6.4-8.2)
[2020-07-02 07:07] LABS: CARBON DIOXIDE 27 MMOL/L (21-32)
[2020-07-02 07:08] LABS: BILIRUBIN,TOTAL 0.4 MG/DL (0.1-1.0)
[2020-07-02 07:09] LABS: ALKALINE PHOSPHATASE 68 U/L (40-136); CREATININE SERUM 0.64 MG/DL (0.60-1.30); GFR ESTIMATED > 60
[2020-07-02 07:10] LABS: BUN/CREATININE RATIO 14
[2020-07-02 07:12] LABS: ALANINE AMINOTRANSFERASE 39 U/L (0-55)
--- NOTE | 2020-07-02 07:57 | NUR ---
PATIENT REPORTS IMPROVEMENT WITH BREATHING AND GENERAL WELLBEING. PATIENT NOTED TO HAVE INCREASE NON PRODUCTIVE COUGH. THROUGHOUT RIGHT LUNG DIMINISHED. PATIENT O2 DECREASED TO 1L. SPO2 96% ON 1L. PATIENT DENIES NEEDS OR C/O AT THIS TIME. REPORTS DOING I.S. INDEPENDENTLY EVERY HOUR. CONT TO MONITOR.
[2020-07-02] MEDS: REMDESIVIR INJ 100 MG in NS (IVPB) 230 ML IV SCH (08:11)
[2020-07-02] MEDS: PARoxetine 20 MG (PAXIL) TAB PO SCH (08:11)
[2020-07-02] MEDS: HYDROCHLOROTHIAZIDE 25 MG (HCTZ) TAB PO SCH (08:11)
[2020-07-02] MEDS: ENOXAPARIN 60 MG/0.6 ML (LOVENOX) SYR SC SCH ×2 (08:11→20:32)
[2020-07-02] MEDS: SENNA W/DOCUSATE (SENOKOT S) TABLET PO SCH ×2 (08:11→20:31)
[2020-07-02] MEDS: LOSARTAN 100 MG (COZAAR) TABLET PO SCH (08:11)
[2020-07-02] MEDS: RT-ALBUTEROL INHALER HFA (VENTOLIN HFA) 18 GM IH SCH ×4 (09:15→22:46)
--- NOTE | 2020-07-02 09:38 | Occupational Therapy Eval ---
OT Evaluation-General/PLF Medical Diagnosis Admission Date Jun 30, 2020 at 13:28 Medical Diagnosis: COVID/ PNA Onset Date: Jun 29, 2020 Therapy Diagnosis Therapy Diagnosis: Decreased ADL status Height/Weight Height (Feet): 5 Height (Inches): 7 Weight (Pounds): 308 Precautions Precautions/Isolations: Contact Isolation, Droplet Isolation Referral Physician: Chace Referral Reason: Activity Tolerance, Self Care, Evaluation/Treatment, Strengthening/ROM Medical History Pertinent Medical History: HTN Additional Medical History HTN, former smoker, obesity Current History COVID+ 5 days prior to admission, tested at [facility] where she works. Reviewed History: Yes Social History Home: Single Level Current Living Status: Friend Entry Into Home: Stairs With Railing Steps Into Home: 3 Steps Inside Home: 0 ADL-Prior Level of Function SCALE: Activities may be completed with or without assistive devices. 0-Aiwqsxhpal-micgeyy completes the activity by him/herself with no assistance fr om a helper. 5-Set-up or Clean-up Assistance-helper sets up or cleans up; patient completes activity. [place] assists only prior to or following the activity. 4-Supervision or Touching Assistance-helper provides verbal cues and/or touching/steadying and/or contact guard assistance as patient completes activity. Assistance may be provided throughout the activity or intermittently. 3-Partial/Moderate Assistance-helper does LESS THAN HALF the effort. Campbell lifts, holds or supports trunk or limbs, but provides less than half the effort. 2-Substantial/Maximal Assistance-helper does MORE THAN HALF the effort. [place] lifts or holds trunk or limbs and provides more than half the effort. 2-Tmlzkpzwb-dfdlmk does ALL the effort. Patient does none of the effort to complete the activity. Or, the assistance of 2 or more helpers is required for the patient to complete the activity. If activity was not attempted, code reason: 7-Patient Refused. 9-Not Applicable-not attempted and the patient did not perform the activity before the current illness, exacerbation or injury. 10-Not Attempted due to Environmental Limitations-(lack of equipment, weather restraints, etc.). 88-Not Attempted due to Medical Conditions or Safety Concerns. ADL PLOF Comments Pt IND without use of AD in/out of home. Self Care: Independent Functional Cognition: Independent DME/Equipment: Tub/Shower Occupation: [employer] [address] Self: Yes OT Current Status Subjective Pt in bed, alert/ oriented. Pt agrees to OT eval. Pt denies pain, states minimal SOB in stance but feels, "Much better than before." Mental Status/Objective Patient Orientation: Person, Place, Situation, Normal For Age Attachments: Oxygen Current Hearing Aids: No Dentures/Partials: No Upper Extremity ROM WFL BUE Upper Extremity Coordination WFL BUE Upper Extremity Sensation WFL BUE Upper Extremity Strength WFL BUE ADL-Treatment Eating (QC): 6 Oral Hygiene (QC): 6 Upper Body Dressing (QC): 5 (s/u gown due to lines, per clinical judgment is IND with typical shirt donning) On/Off Footwear (QC): 7 (denies socks this date.) Toileting Hygiene (QC): 6 (toilet transfer and hygiene IND) Other Treatments Pt in bed. Agrees to tx. Bed mob/ sit to stand/ ambulation with SBA. Pt has good balance in stance, no use of AD. Pt completes toileting/ hand hygiene, returns to recliner. Pt is educated on benefits of upright positioning. Pt denies needs, does not require skilled OT tx as pt is IND with all ADLs at this time. Pt agrees with this. Education OT Patient Education: Correct positioning, Purpose of tx/functional activities Teaching Recipient: Patient Teaching Methods: Discussion Response to Teaching: Verbalize Understanding, Return Demonstration OT Mcc Goals Lead Quality Control Technician Goals 1=Demonstrate adherence to instructed precautions during ADL tasks. 2=Patient will verbalize/demonstrate understanding of assistive devices/modifications for ADL. 3=Patient will improve strength/tolerance for activity to enable patient to perform ADL's. OT Education/Plan Problem List/Assessment Assessment: No Skilled OT Needs ID'd Discharge Recommendations Plan/Recommendations: Discharge/Goals Met Therapy Discharge Recommendati: Home & Family Treatment Plan/Plan of Care Treatment,Training & Education: Yes Patient would benefit from OT for education, treatment and training to promote independence in ADL's, mobility, safety and/or upper extremity function for ADL's. Plan of Care: OTHER (eval and d/c.) Treatment Duration: Jul 02, 2020 Frequency: 1 time per week (eval and d/c.) Time/GCodes Start Time: 08:35 Stop Time: 08:45 Total Time Billed (hr/min): 10 Billed Treatment Time 1, EVL (10) D/c. Pt does not require skilled OT. ROSEANNE BYRNE OTR Jul 02, 2020 09:38
--- NOTE | 2020-07-02 10:22 | Physical Therapy Evaluation ---
PT Evaluation-General Medical Diagnosis Admission Date Jun 30, 2020 at 13:28 Medical Diagnosis: COVID/ PNA Onset Date: Jun 29, 2020 Therapy Diagnosis Therapy Diagnosis: Decreased mobility Height/Weight Height (Feet): 5 Height (Inches): 7 Weight (Pounds): 308 Precautions Precautions/Isolations: Contact Isolation, Droplet Isolation Weight Bear Status Full Weight Bearing Full Weight Bearing Referral Physician: Chace Reason for Referral: Evaluation/Treatment Medical History Pertinent Medical History: HTN Additional Medical History former smoker, obesity Current History COVID+ 5 days prior to admission, tested at [facility] where she works. Reviewed History: Yes Social History Home: Single Level Current Living Status: Friend Entry Into Home: Stairs With Railing PT Steps Into Home: 3 PT Steps Inside Home: 0 Prior Prior Level of Function SCALE: Activities may be completed with or without assistive devices. 8-Chspgcyspo-wzhdqkf completes the activity by him/herself with no assistance from a helper. 5-Set-up or Clean-up Assistance-helper sets up or cleans up; patient completes activity. [place] assists only prior to or following the activity. 4-Supervision or Touching Assistance-helper provides verbal cues and/or touching/steadying and/or contact guard assistance as patient completes activity. Assistance may be provided throughout the activity or intermittently. 3-Partial/Moderate Assistance-helper does LESS THAN HALF the effort. [place] lifts, holds or supports trunk or limbs, but provides less than half the effort. 2-Substantial/Maximal Assistance-helper does MORE THAN HALF the effort. [place] lifts or holds trunk or limbs and provides more than half the effort. 3-Lmuyphdth-wnfzcc does ALL the effort. Patient does none of the effort to complete the activity. Or, the assistance of 2 or more helpers is required for the patient to complete the activity. If activity was not attempted, code reason: 7-Patient Refused. 9-Not Applicable-not attempted and the patient did not perform the activity before the current illness, exacerbation or injury. 10-Not Attempted due to Environmental Limitations-(lack of equipment, weather restraints, etc.). 88-Not Attempted due to Medical Conditions or Safety Concerns. Bed Mobility: 6 Transfers (B,C,W/C): 6 Gait: 6 Stairs: 6 Indoor Mobility (Ambulation): Independent Stairs: Independent Prior Device Use: No AD used PT Evaluation-Current Subjective Pt presents sitting up in bed, agreeable to therapy evaluation. Pt denies pain currently, "I feel much better than before." Pt/Family Goals return home Objective Patient Orientation: Person, Place Attachments: Oxygen (1L) ROM/Strength ROM Lower Extremities Grossly WFL Strength Lower Extremities Grossly 4/5 with functional mobility Integumentary/Posture Integumentary Refer to nursing notes Posture General upright posture Neuromuscular (Tone, Coordination, Reflexes) Grossly intact Sensory Sensation Right Lower Extremit: Intact Sensation Left Lower Extremity: Intact Transfers Roll Left to Right (QC): 6 Lying to Sitting/Side of Bed(Q: 6 Sit to Stand (QC): 6 Toilet Transfer (QC): 6 Gait Does the Patient Walk?: Yes Mode of Locomotion: Walk Anticipated Mode of Locomotion: Walk Walk 10 feet (QC): 6 Gait Assistive Device: None Balance Sitting Static: Normal Sitting Dynamic: Normal Standing Static: Normal Standing Dynamic: Normal Treatment Pt up in room AD andrea, states her mobility has improved since initial admission into the hospital. Pt ambulates into bathroom (I), able to complete toilet transfer and return to chair (I), with no LOB and normal gait pattern. Pt at prior LOF, and independent with functional mobility Assessment/Needs No PT needs at this time, as she is independent with all functional mobility. DC pt services. Rehab Potential: Good PT Plan Treatment/Plan Treatment Plan: Discontinue PT Treatment Duration: Jul 02, 2020 Frequency: DC PT Time/GCodes Time In: 845 Time Out: 900 Total Billed Treatment 1 visit Eval Moderate Complexity (15') LAUREN HOGAN PT Jul 02, 2020 10:22
[2020-07-02] MEDS: guaiFENesin/DM (ROBITUSSIN DM) 10 ML UDC PO PRN ×3 (12:53→23:00)
--- NOTE | 2020-07-02 12:54 | NUR ---
ROBITUSSIN FOR C/O COUGH. DENIES NEEDS OR C/O . 97% ON RA.
--- NOTE | 2020-07-02 13:50 | NUR ---
PATIENT REPORTS RELIEF FROM ROBITUSSIN. O2 SAT 95%RA.
--- NOTE | 2020-07-02 17:32 | NUR ---
SPO2 89% ON RA, PATIENT PLACED ON 1L-REBOUNDED TO 95% 1L. NOTED INCREASED WHEEZES. ROBITUSSIN FOR C/O COUGH. CONT TO MONITOR.
[2020-07-02] MEDS: dexAMETHasone 6 MG TAB (DECADRON) PO SCH (20:32)
[2020-07-02] MEDS: SIMvastatin 10 MG (ZOCOR) TAB PO SCH (20:32)
[2020-07-02] MEDS: MELATONIN 3 MG TABLET PO PRN (23:00)
[2020-07-03 04:28] VITALS: BP 114/66
[2020-07-03] MEDS: LEVOTHYROXINE 50 MCG (LEVOTHROID) TAB PO SCH (05:11)
[2020-07-03] MEDS: RT-ALBUTEROL INHALER HFA (VENTOLIN HFA) 18 GM IH SCH ×4 (07:05→20:33)
[2020-07-03 08:00] VITALS: BP 118/61
[2020-07-03] MEDS: ENOXAPARIN 60 MG/0.6 ML (LOVENOX) SYR SC SCH ×2 (09:18→19:58)
[2020-07-03] MEDS: REMDESIVIR INJ 100 MG in NS (IVPB) 230 ML IV SCH (09:19)
[2020-07-03] MEDS: SENNA W/DOCUSATE (SENOKOT S) TABLET PO SCH ×2 (09:19→19:56)
[2020-07-03] MEDS: HYDROCHLOROTHIAZIDE 25 MG (HCTZ) TAB PO SCH (09:19)
[2020-07-03] MEDS: PARoxetine 20 MG (PAXIL) TAB PO SCH (09:19)
[2020-07-03] MEDS: LOSARTAN 100 MG (COZAAR) TABLET PO SCH (09:19)
[2020-07-03] MEDS: guaiFENesin/DM (ROBITUSSIN DM) 10 ML UDC PO PRN ×2 (09:36→19:58)
--- NOTE | 2020-07-03 11:22 | Progress Note - Hospitalist ---
Subjective HPI/CC On Admission Date Seen by Provider: Jul 03, 2020 Time Seen by Provider: 11:30 CC: Covid-19 pneumonia with hypoxia HPI: This is a 55yoWF who presented five days after testing positive for Covid- 19 when they tested her at [facility]. Dr. Schneider was consulted and placed her on protocol medication for Covid-19 and remains on oxygen supplementation. CT angiogram of the lungs will be obtained. Will heplock IV fluid so she can move around. Pt denies any pain. Subjective/Events-last exam patient doing better Less dyspneic O2 weaning Last dose of Remdesivir is tomorrow DC tomorrow? Review of Systems Pulmonary: Dyspnea Objective Exam Vital Signs Vital Signs Date Time Temp Pulse Resp B/P (MAP) Pulse Ox O2 Delivery O2 Flow Rate FiO2 07/03/20 16:48 36.9 71 21 120/77 (91) 94 Room Air 07/03/20 08:00 1.00 06/30/20 01:47 21 Capillary Refill : Less Than 3 Seconds General Appearance: No Apparent Distress, WD/WN, Chronically ill Respiratory: Chest Non Tender, Lungs Clear, Normal Breath Sounds, No Accessory Muscle Use, No Respiratory Distress Cardiovascular: Regular Rate, Rhythm, No Edema, No Gallop, No JVD, No Murmur, Normal Peripheral Pulses Neurologic/Psychiatric: Alert, Oriented x3, No Motor/Sensory Deficits, Normal Mood/Affect Results/Procedures Lab Patient resulted labs reviewed. Assessment/Plan Assessment and Plan Assess & Plan/Chief Complaint Assessment: COVID-19 PNA Hypoxia Dyspnea Former smoker Obesity Plan: COVID 19 meds O2 07/03/20: Complete anti-viral O2 wean Diagnosis/Problems Diagnosis/Problems (1) COVID-19 Status: Acute (2) Shortness of breath Status: Acute (3) Hypoxia Status: Acute (4) Hyponatremia Status: Acute (5) Hypokalemia Status: Acute (6) Alcohol abuse Status: Acute Clinical Quality Measures DVT/VTE Risk/Contraindication: Risk Factor Score Per Nursin RFS Level Per Nursing on Admit: 4+=Very High JANEY HUMMEL DO Jul 03, 2020 11:22
[2020-07-03 12:00] VITALS: BP 118/70
[2020-07-03 16:48] VITALS: BP 120/77
[2020-07-03 19:48] VITALS: BP 115/77
[2020-07-03] MEDS: dexAMETHasone 6 MG TAB (DECADRON) PO SCH (19:57)
[2020-07-03] MEDS: SIMvastatin 10 MG (ZOCOR) TAB PO SCH (19:57)
[2020-07-03] MEDS: MELATONIN 3 MG TABLET PO PRN (19:58)
[2020-07-04 00:37] VITALS: BP 125/72
[2020-07-04 04:37] VITALS: BP 119/67
[2020-07-04] MEDS: LEVOTHYROXINE 50 MCG (LEVOTHROID) TAB PO SCH (05:44)
[2020-07-04] MEDS: guaiFENesin/DM (ROBITUSSIN DM) 10 ML UDC PO PRN (05:46)
[2020-07-04 06:23] LABS: BASOPHILS % (AUTO) 0 % (0-10); EOSINOPHILS % (AUTO) 0 % (0-10); HEMATOCRIT 42 % (35-52); HEMOGLOBIN 13.5 g/dL (11.5-16.0); LYMPHOCYTES # (AUTO) 0.8 10^3/uL (1.0-4.0); LYMPHOCYTES % (AUTO) 12 % (12-44); MEAN CORPUSCULAR HEMOGLOBIN 32 pg (25-34); MEAN CORPUSCULAR HGB CONC 32 g/dL (32-36); MEAN CORPUSCULAR VOLUME 98 fL (80-99); MEAN PLATELET VOLUME 9.6 fL (9.0-12.2); MONOCYTES # (AUTO) 0.5 10^3/uL (0.0-1.0); MONOCYTES % (AUTO) 8 % (0-12); NEUTROPHILS # (AUTO) 5.1 10^3/uL (1.8-7.8); NEUTROPHILS % (AUTO) 79 % (42-75); PLATELET COUNT 360 10^3/uL (130-400); WHITE BLOOD COUNT 6.5 10^3/uL (4.3-11.0)
[2020-07-04 06:26] LABS: ALBUMIN 3.4 GM/DL (3.2-4.5); CHLORIDE 95 MMOL/L (98-107); POTASSIUM 3.7 MMOL/L (3.6-5.0); SODIUM 136 MMOL/L (135-145)
[2020-07-04 06:27] LABS: CALCIUM 8.6 MG/DL (8.5-10.1)
[2020-07-04 06:28] LABS: GLUCOSE 163 MG/DL (70-105)
[2020-07-04 06:29] LABS: TOTAL PROTEIN 6.5 GM/DL (6.4-8.2)
[2020-07-04 06:30] LABS: BILIRUBIN,TOTAL 0.4 MG/DL (0.1-1.0); CARBON DIOXIDE 28 MMOL/L (21-32)
[2020-07-04 06:32] LABS: ALKALINE PHOSPHATASE 66 U/L (40-136); CREATININE SERUM 0.66 MG/DL (0.60-1.30); GFR ESTIMATED > 60
[2020-07-04 06:33] LABS: BUN/CREATININE RATIO 12
[2020-07-04 06:35] LABS: ALANINE AMINOTRANSFERASE 64 U/L (0-55)
[2020-07-04 08:00] VITALS: BP 128/71
[2020-07-04] MEDS: HYDROCHLOROTHIAZIDE 25 MG (HCTZ) TAB PO SCH (08:49)
[2020-07-04] MEDS: LOSARTAN 100 MG (COZAAR) TABLET PO SCH (08:49)
[2020-07-04] MEDS: PARoxetine 20 MG (PAXIL) TAB PO SCH (08:49)
[2020-07-04] MEDS: SENNA W/DOCUSATE (SENOKOT S) TABLET PO SCH (08:49)
[2020-07-04] MEDS: ENOXAPARIN 60 MG/0.6 ML (LOVENOX) SYR SC SCH (08:49)
[2020-07-04] MEDS: REMDESIVIR INJ 100 MG in NS (IVPB) 230 ML IV SCH (08:49)
[2020-07-04] MEDS: RT-ALBUTEROL INHALER HFA (VENTOLIN HFA) 18 GM IH SCH ×2 (09:32→11:23)
[2020-07-04] MEDS ORDERED: DEXA6TAB PO (11:06)
--- NOTE | 2020-07-04 11:07 | Discharge Summary ---
Discharge Summary Hospital Course Was the Problem List Reviewed?: Yes Problems/Dx: (1) COVID-19 Status: Acute (2) Shortness of breath Status: Acute (3) Hypoxia Status: Acute (4) Hyponatremia Status: Acute (5) Hypokalemia Status: Acute (6) Alcohol abuse Status: Acute Hospital Course Date of Admission: Jun 30, 2020 at 13:28 Admission Diagnosis : Family Physician/Provider: [place]/[facility] Date of Discharge: 07/04/20 Discharge Diagnosis: COVID-19 PNA, hypoxia Hospital Course: Hospital course: Pt had an uneventful hospital course for five days when she was admitted for SOB and hypoxia with Covid-19, she was placed on protocol of Remdesivir, IV Decadron and Convalescent plasma and actually did very well. Ultimately required 2L of continuous oxygen at discharge but she was doing very well, wa deemed stable at discharge but I did place her on Eliquis 2.5 Mg BID to prevent DVT and thrombosis following Covid and will be monitoring Pt closely in the meantime. Labs and Pending Lab Test: Laboratory Tests 07/04/20 06:00: White Blood Count 6.5, Red Blood Count 4.27, Hemoglobin 13.5, Hematocrit 42, Mean Corpuscular Volume 98, Mean Corpuscular Hemoglobin 32, Mean Corpuscular Hemoglobin Concent 32, Red Cell Distribution Width 12.5, Platelet Count 360, Mean Platelet Volume 9.6, Immature Granulocyte % (Auto) 1, Neutrophils (%) (Auto) 79H, Lymphocytes (%) (Auto) 12, Monocytes (%) (Auto) 8, Eosinophils (%) (Auto) 0, Basophils (%) (Auto) 0, Neutrophils # (Auto) 5.1, Lymphocytes # (Auto) 0.8L, Monocytes # (Auto) 0.5, Eosinophils # (Auto) 0.0, Basophils # (Auto) 0.0, Immature Granulocyte # (Auto) 0.0, Sodium Level 136, Potassium Level 3.7, Chloride Level 95L, Carbon Dioxide Level 28, Anion Gap 13, Blood Urea Nitrogen 8, Creatinine 0.66, Estimat Glomerular Filtration Rate > 60, BUN/Creatinine Ratio 12, Glucose Level 163H, Calcium Level 8.6, Corrected Calcium 9.1, Total Bilirubin 0.4, Aspartate Amino Transf (AST/SGOT) 49H, Alanine Aminotransferase (ALT/SGPT) 64H, Alkaline Phosphatase 66, Total Protein 6.5, Albumin 3.4 07/04/20 08:50: Lab Scanned Report Transfusion Reaction Form Microbiology 06/29/20 Influenza Types A,B Antigen (CORINNA) - Final, Complete Home Meds Active Dexamethasone 6 Mg Tablet 6 Mg PO HS Reported Hydrochlorothiazide 25 Mg Tablet 25 Mg PO DAILY Levothyroxine Sodium 50 Mcg Tablet 50 Mcg PO DAILY Lovastatin 10 Mg Tablet 10 Mg PO DAILY Losartan Potassium 50 Mg Tablet 100 Mg PO DAILY TAKES 2 (50MG) TABS Paroxetine HCl 20 Mg Tablet 20 Mg PO DAILY Assessment/Pt Instructions [facility] 1 week Discharge Planning: <30 minutes discharge planning Discharge Physical Examination Vital Signs Vital Signs Date Time Temp Pulse Resp B/P (MAP) Pulse Ox O2 Delivery O2 Flow Rate FiO2 07/04/20 08:00 95 Room Air 1.00 07/04/20 08:00 35.7 70 20 128/71 (90) 06/30/20 01:47 21 General Appearance: No Apparent Distress, WD/WN, Chronically ill Respiratory: Lungs Clear Cardiovascular: Regular Rate, Rhythm Neurologic/Psychiatric: Alert, Oriented x3, No Motor/Sensory Deficits, Normal Mood/Affect Allergies: Coded Allergies: Iodinated Contrast Media (Unverified Allergy, Mild, 08/09/08) pentazocine (Unverified Allergy, Mild, 08/09/08) rofecoxib (Unverified Allergy, Mild, 08/09/08) Discharge Summary Date of Admission Jun 30, 2020 at 13:28 Date of Discharge Discharge Date: Jul 04, 2020 Admission Diagnosis Assessment: COVID-19 PNA Hypoxia Obesity Former smoker Plan: COVID protocol O2 Monitor labs Discharge Diagnosis Assessment: COVID-19 PNA Hypoxia Dyspnea Former smoker Obesity Plan: COVID 19 meds O2 07/03/20: Complete anti-viral O2 wean (1) COVID-19 Status: Acute (2) Shortness of breath Status: Acute (3) Hypoxia Status: Acute (4) Hyponatremia Status: Acute (5) Hypokalemia Status: Acute (6) Alcohol abuse Status: Acute Clinical Quality Measures DVT/VTE Risk/Contraindication: Risk Factor Score Per Nursin RFS Level Per Nursing on Admit: 4+=Very High JANEY HUMMEL DO Jul 04, 2020 11:06
--- NOTE | 2020-07-04 11:28 | NUR ---
SPO2 86% ON ROOM AIR @ REST. REPLACED O2 @ 2 LPM. SPO2 INCREASED TO 95%.
[2020-07-04] MEDS ORDERED: APIX2.5T PO (11:58)
[2020-07-04 12:00] VITALS: BP 125/71
--- NOTE | 2020-07-04 12:38 | NUR ---
DISCHARGE PLANNING: Patient, Cony, will be discharged today to home with need of new oxygen. She has agreed to use [facility] due to need of alissa assistance. I have sent the clinical and order as well as notified them by phone.
[2020-07-04 15:00] VITALS: BP 125/71
--- NOTE | 2020-07-04 15:02 | NUR ---
patient discharged at this time.
[2020-07-04 15:26] VITALS: BP 125/71
== END 2020-07-04 15:00 | DRG 177 ==
LOC: EDUNIT# 18:44 → ER 18:47 → 4TH 21:43 → OBSVTOIN 06-30 13:28
PROVIDERS: ADMIT Internal Medicine; ATTEND Internal Medicine
PROC: XW033E5 Introduction of Remdesivir Anti-infective into Peripheral Vein, Percutaneous Approach, New Technology Group 5 (ICD-10-PCS; principal; 2020-06-30)
PROC: XW13325 Transfusion of Convalescent Plasma (Nonautologous) into Peripheral Vein, Percutaneous Approach, New Technology Group 5 (ICD-10-PCS; 2020-06-30)
DX: U07.1 COVID-19 (principal); J12.89 Other viral pneumonia; E87.1 Hypo-osmolality and hyponatremia; Z68.44 Body mass index [BMI] 60.0-69.9, adult; R09.02 Hypoxemia; J30.2 Other seasonal allergic rhinitis; I10 Essential (primary) hypertension; M47.9 Spondylosis, unspecified; E66.9 Obesity, unspecified; E87.6 Hypokalemia; F10.10 Alcohol abuse, uncomplicated; Z87.891 Personal history of nicotine dependence
CPT/HCPCS: 36415; 71045; 71250; 80053; 80306; 80320; 81000; 82805; 83615; 83735; 84100; 84145; 85025; 85027; 85379; 85610; 85652; 85730; 86141; 86900; 86901; 87804; 94640; 94660; 94664; 94760; 96374; G0378

== ENCOUNTER → 2020-07-28 | Outpatient (CLI) | payer OTHER ==
[~2020-07-28] MED LIST changes: +APIX2.5T PO; +DEXA6TAB PO; +HYDR25TA4 PO; +LEVO25TA5 PO; +LEVO50TA6 PO; +LOSA50TA63 PO; +LOVA10TA PO; +PARO-49 PO; +PARO20TA5 PO
== END ==
LOC: CARD 13:00
PROVIDERS: ATTEND Nurse Practitioner Family
DX: U07.1 COVID-19 (principal); I51.7 Cardiomegaly
CPT/HCPCS: 93306

== ENCOUNTER → 2020-08-31 | Outpatient (CLI) | payer OTHER ==
[~2020-08-31] VITALS: Ht 167 cm; Wt 150.0 kg
[~2020-08-31] MED LIST changes: +CATHETER FLUSH 10 ML SYR IV PRN; +REGADENOSON 0.4 MG/5 ML SYR (LEXISCAN) IV ONE
[2020-08-31 08:53] VITALS: BP 156/91
--- NOTE | 2020-08-31 11:51 | Cardiology Stress Test Report ---
Stress Test Report Date of Procedure/Referring: Date of Procedure: Aug 31, 2020 PCP Arlene Rock MD Admitting Physician Center/[facility] Indications: Dyspnea Baseline Heart Rate: 76 Baseline Blood Pressure: Blood Pressure Systolic: 156 Blood Pressure Diastolic: 91 Baseline Vitals Vital Signs Date Time Temp Pulse Resp B/P (MAP) Pulse Ox O2 Delivery O2 Flow Rate FiO2 08/31/20 08:53 89 18 156/91 (112) 97 Room Air Baseline EKG: Baseline EKG: normal sinus rhythm Summary After explaining the procedure to the patient, she signed a consent and then brought to the stress nuclear laboratory. Patient received 0.4 mg Lexiscan for stress test, ECG, heart rate and blood pressure were monitored continuously. Resting and stress dose of radio tracer were injected, imaging was acquired and reviewed in short axis, horizontal long axis and vertical long axis views. TID: 1.06 SSS: 21 SDS: 15 EF: 76 1. Patient tolerated Lexiscan well 2. Breast attenuation with reversible ischemia involving the whole anterior wall and anterolateral wall 3. Normal left ventricular size, EF 76 percent ARLENE ROCK MD Aug 31, 2020 11:51
== END ==
LOC: CARD 06:58
PROVIDERS: ATTEND Internal Medicine Cardiovascular Disease
DX: R06.00 Dyspnea, unspecified (principal)
CPT/HCPCS: 78452; 93017; A9502

== ENCOUNTER 2020-09-07 10:00 | Day surgery (SDC) | payer OTHER ==
[2020-09-07] VITALS (8 sets, daily range): BP systolic 130–160; BP diastolic 76–102
[~2020-09-07] VITALS: Ht 165 cm; Wt 148.7 kg
--- NOTE | 2020-09-07 08:46 | Diagnostic Imaging Report ---
INDICATION: Chest pain, coronary artery disease. COMPARISON: 06/30/2020. FINDINGS: The heart size is upper limits. Intermediastinal colonic interposition is noted. There is elevation of the right diaphragm, chronic. There is no infiltrate, effusion, or pneumothorax. No overt failure pattern. IMPRESSION: Stable chronic findings. Dictated by: Dictated on workstation # [id number]
[2020-09-07 08:47] LABS: HEMOGLOBIN 14.8 g/dL (11.5-16.0); MEAN PLATELET VOLUME 9.3 fL (9.0-12.2)
[2020-09-07 08:47] LABS: BILIRUBIN,URINE 1+ (NEGATIVE); CLARITY,URINE CLEAR; COLOR,URINE AMBER; GLUCOSE, URINE (UA) NEGATIVE (NEGATIVE); KETONES,URINE NEGATIVE (NEGATIVE); LEUKOCYTE ESTERASE ,URINE NEGATIVE (NEGATIVE); NITRITE,URINE NEGATIVE (NEGATIVE); PH,URINE 5.5 (5-9); PROTEIN,URINE NEGATIVE (NEGATIVE)
[2020-09-07 09:02] LABS: PROTHROMBIN TIME PATIENT 13.2 SEC (12.2-14.7)
[2020-09-07 09:06] LABS: ALANINE AMINOTRANSFERASE 47 U/L (0-55); ALBUMIN 4.1 GM/DL (3.2-4.5); ALKALINE PHOSPHATASE 100 U/L (40-136); BILIRUBIN,TOTAL 0.7 MG/DL (0.1-1.0); BUN/CREATININE RATIO 9; CALCIUM 9.2 MG/DL (8.5-10.1); CARBON DIOXIDE 26 MMOL/L (21-32); CHLORIDE 100 MMOL/L (98-107); CHOLESTEROL 213 MG/DL (< 200); CREATININE SERUM 0.74 MG/DL (0.60-1.30); GFR ESTIMATED > 60; GLUCOSE 104 MG/DL (70-105); HDL CHOLESTEROL 93 MG/DL (40-60); POTASSIUM 3.7 MMOL/L (3.6-5.0); SODIUM 141 MMOL/L (135-145); TOTAL PROTEIN 7.4 GM/DL (6.4-8.2); TRIGLYCERIDES 123 MG/DL (<150); VLDL CHOLESTEROL 25 MG/DL (5-40)
[2020-09-07 09:07] LABS: BACTERIA,URINE TRACE /HPF; SQUAMOUS EPITHELIAL CELL,UR 25-50 /HPF
[~2020-09-07 10:00] MED LIST changes: -CATHETER FLUSH 10 ML SYR IV PRN; +HEParin (CATH LAB) 2,000 ML IV ONE; +LIDOCAINE 1% INJ 20 ML 20 ML VIAL ONE; +METO-351 PO; +NS IV 1000 ML 1,000 ML IV SCH; +NS IV 1000 ML 1,000 ML ONE; -REGADENOSON 0.4 MG/5 ML SYR (LEXISCAN) IV ONE
[2020-09-07] MEDS ORDERED: methylPREDNISolone 125 MG (Solu-MEDROL) VIAL ONE (10:10)
[2020-09-07] MEDS ORDERED: MIDAZOLAM 5 MG/5 ML (VERSED) VIAL ONE (10:14)
[2020-09-07] MEDS ORDERED: NITRO DRIP 25000 MCG/D5W 250 ML IV ONE (10:15)
[2020-09-07] MEDS ORDERED: HEParin 1000 UNIT/ML (10ML VIAL) FOR BOLUS ONE (10:15)
[2020-09-07] MEDS ORDERED: diphenhydrAMINE 50 MG/ML INJ (BENADRYL) ONE (10:15)
[2020-09-07] MEDS ORDERED: fentaNYL INJECTION 100 MCG/2 ML AMP ONE (10:15)
[2020-09-07] MEDS ORDERED: VERAPAMIL 5 MG/2 ML (CALAN) VIAL IV ONE (10:15)
--- NOTE | 2020-09-07 11:11 | Cardiac Procedure Note-CS/ASA ---
Pre-Procedure Note Pre-Op Procedure Note H&P Reviewed The H&P was reviewed, patient examined and no changes noted. Date H&P Reviewed: Sep 07, 2020 Time H&P Reviewed: 11:10 Conscious Sedation Pre-Proced Time 11:10 ASA Score 3 For ASA 3 and 4: Consider anesthesia and medical clearance. Also, for patients with a history of failed moderate sedation consider anesthesia. Airway Lungs Heart ASA score ASA 1: a normal healthy patient ASA 2: a patient with a mild systemic disease (mid diabetes, controlled hypertension, obesity x ASA 3: a patient with a severe systemic disease that limits activity (angina, COPD, prior Myocardial infarction) ASA 4: a patient with an incapacitating disease that is a constant threat to life (CHF, renal failure) ASA 5: a moribund patient not expected to survive 24 hrs. (ruptured aneurysm) ASA 6: a declared brain- patient whose organs are being harvested. For emergent operations, add the letter E after the classification Mallampati Classification Grade 3 Sedation Plan Analgesia, Amnesia, Plan communicated to team members, Discussed options with patient/fam, Discussed risks with patient/fam The patient is an appropriate candidate to undergo the planned procedure, sedation, and anesthesia. The patient immediately re-assessed prior to indication. ARLENE SEARS MD Sep 07, 2020 11:11
--- NOTE | 2020-09-07 11:12 | Discharge Inst-Post CATH ---
Discharge Inst-CATH/EP Problems Reviewed?: Yes Post Cardiac Cath/EP D/C Inst Follow Up/Plan Appointment with Dr. SEARS's office in 4 weeks <b>CARDIAC CATH/EP PROCEDURE DISCHARGE INSTRUCTIONS</b> ACTIVITY * Go Home directly and rest. * Limit activity of the leg (or wrist if it was used) for 7 days including aerobics, swimming, jogging, bicycling, etc. * Restrict stair-climbing for 7 days if possible, if not, climb up with your non-cath leg, then bring together on the same step. * Avoid lifting, pushing, pulling or excessive movement of the affected extremity for 7 days. * Customary sexual activity may be resumed after 2 days-use caution not to use a position that strains or causes pain to the affected extremity. * No driving for 24 hours. * NO SMOKING. * Avoid straining for bowel movements for 7 days. * Gentle walking on level ground is allowed. * Returning to work will depend on the type of procedure and the results. Your doctor will discuss this with you. CALL YOUR DOCTOR FOR ANY OF THE FOLLOWING: *If bleeding from the puncture site occurs- Apply gentle pressure to site with clean cloth and call your doctor or EMS. * If a knot or lump forms under the skin, increases in size, or causes pain. * If bruising appears to be worsening or moving further down your leg instead of disappearing. * Temperature above 101 F. CARE OF YOUR GROIN INCISION; * Bruising or purple discoloration of the skin near the puncture site is common. * You may shower only, no bathtub bathing for 5 days. Be careful to avoid slipping as your leg may feel stiff. * If a closure device was used on your femoral artery, please see the attached guide regarding care of the device and your leg. * Leave dressing on FOR 24 hours. CARE OF YOUR WRIST INCISION; * Bruising or purple discoloration of the skin near the puncture site is common. * You may shower. * DO NOT submerge wrist. * Leave dressing on FOR 24 hours. ARLENE SEARS MD Sep 07, 2020 11:12
[2020-09-07] MEDS ORDERED: NS IV 1000 ML 1,000 ML IV SCH (11:15)
--- NOTE | 2020-09-07 11:15 | Cardiac Cath Report ---
Cardiac Cath Report Physician (s)/Etl Manager (s) Physician ARLENE SEARS MD Pre-Procedure Diagnosis Pre-Procedure Diagnosis: chest pain Post-Procedure Note Procedure Start Date: Sep 07, 2020 Name of Procedure: Left heart catheterization Findings/Procedure Note PROCEDURE NOTE: 55-year-old lady with history of hypertension and hyperlipidemia, having chest pain, had an abnormal stress test, scheduled for cardiac catheterization possible PTCA. After explaining the procedure to the patient, all pros and cons were explained, all questions were answered. The patient signed the consent and then she was placed on the cardiac catheterization laboratory. Groin was prepped SL fashion local anesthesia was used. Sheath placed in the right radial artery, [place] catheter was used advanced to the left ventricular cavity, pressure was measured no liver ventricular gram was done, pullback LV to aorta was done, intubated the coronary system selectively and angiogram was done. At the end of the procedure the sheath was removed. Vascular band was used FINDINGS: Hemodynamics LV 130 over 3, end-diastolic pressure 3 Aorta 117/77 mean of 95 ANATOMY: Left Main is free of obstructive disease Left Anterior Descending is slightly tortuous with mild disease distally non obstructive disease Left Circumflex has no significant obstructive disease Right Coronory Artery is dominant artery with mild disease nonobstructive disease LV Gram was not done, pressure was measured CONCLUSION: 1. Mild coronary artery disease nonobstructive disease 2. Normal left ventricular end-diastolic pressure DISCUSSION AND RECOMMENDATION: Chest pain is probably noncardiac, abnormal stress Test is due to extracardiac attenuation, no intervention is needed Anesthesia Type: Conscious Sedation Estimated blood loss (mL): 10 ml Contrast Amount: 35 ml Total Radiation Dose: 314 mGy Post-Procedure Diagnosis Post-operative diagnosis: Chest pain Coronary artery disease Hypertension Hyperlipidemia ARLENE SEARS MD Sep 07, 2020 11:15
== END 2020-09-07 14:00 | disposition home or self-care (01) ==
LOC: CATH 10:00 → SDC 11:24 → CATH 14:00
PROVIDERS: ATTEND Internal Medicine Cardiovascular Disease
DX: I25.10 Atherosclerotic heart disease of native coronary artery without angina pectoris (principal); I11.9 Hypertensive heart disease without heart failure; E78.2 Mixed hyperlipidemia; E78.5 Hyperlipidemia, unspecified; E66.9 Obesity, unspecified; Z68.43 Body mass index [BMI] 50.0-59.9, adult; Z79.899 Other long term (current) drug therapy; Z91.041 Radiographic dye allergy status; Z88.5 Allergy status to narcotic agent; Z80.9 Family history of malignant neoplasm, unspecified
CPT/HCPCS: 71045; 80053; 80061; 81000; 85027; 85610; 85730; 87081; 93458; C1894; 36415

== ENCOUNTER → 2020-12-26 | Outpatient (CLI) | payer OTHER ==
[~2020-12-26] MED LIST changes: -HEParin (CATH LAB) 2,000 ML IV ONE; -LIDOCAINE 1% INJ 20 ML 20 ML VIAL ONE; -NS IV 1000 ML 1,000 ML IV SCH; -NS IV 1000 ML 1,000 ML ONE; +RT-ALBUTEROL SULF 2.5 MG/3 ML PRE-MIX VIAL INH ONE
--- NOTE | 2020-12-26 09:35 | Diagnostic Imaging Report ---
EXAMINATION: CT chest without contrast. TECHNIQUE: Multiple contiguous axial images were obtained through the chest without the use of intravenous contrast. All CT scans use one or more of the following dose optimizing techniques: automated exposure control, MA and/or KvP adjustment based on patient size and exam type or iterative reconstruction. HISTORY: Dyspnea. Post-COVID infection from June 2020. Shortness of breath. COMPARISON: 06/30/2020. FINDINGS: The heart size is within normal limits. No pericardial effusion is present. Anterior mediastinal cervical esophagus to stomach conduit is again noted. There is no mediastinal, hilar, or axillary lymphadenopathy. The lungs demonstrate no pulmonary nodules or masses. There are no focal areas of consolidation. Small amount of subsegmental atelectasis is seen in the right lung base. The previously visualized areas of groundglass opacities scattered throughout the lungs have resolved. No evidence of subsequent fibrosis. No central endobronchial obstructing lesions are identified. There is no pleural effusion or pneumothorax. The osseous structures demonstrate no acute abnormalities. Limited views of the upper abdominal structures demonstrate no acute abnormalities. Hepatic steatosis is noted. Both adrenal glands are unremarkable. IMPRESSION: 1. Interval resolution of the scattered groundglass opacities throughout the lungs. No residual opacities or evidence of fibrosis. 2. Hepatic steatosis. 3. Redemonstration of anterior mediastinal cervical esophagus to stomach conduit. Report was faxed to [facility] nurse Infection Control by amina at 9:35am. Dictated by: Dictated on workstation # [id number]
== END ==
LOC: RT 08:00
PROVIDERS: ATTEND Internal Medicine Critical Care Medicine
DX: Z13.83 Encounter for screening for respiratory disorder NEC (principal); R06.00 Dyspnea, unspecified; K76.0 Fatty (change of) liver, not elsewhere classified
CPT/HCPCS: 71250; 94060; 94726; 94729

== ENCOUNTER → 2021-01-06 | Outpatient (CLI) | payer OTHER ==
[~2021-01-06] MED LIST changes: -RT-ALBUTEROL SULF 2.5 MG/3 ML PRE-MIX VIAL INH ONE
== END ==
LOC: LABNPT 08:21
PROVIDERS: ATTEND Nurse Practitioner Family
DX: Z01.812 Encounter for preprocedural laboratory examination (principal); Z20.822 Contact with and (suspected) exposure to COVID-19
CPT/HCPCS: 87635

== ENCOUNTER 2021-01-11 20:55 | Outpatient (CLI) | payer OTHER | END 2021-01-12 06:20 | disposition home or self-care (01) | LOC: SLEEP 20:55 | PROVIDERS: ATTEND Nurse Practitioner Family | DX: G47.30 Sleep apnea, unspecified (principal); G47.50 Parasomnia, unspecified; G47.10 Hypersomnia, unspecified; R06.83 Snoring | CPT/HCPCS: 95811 ==

== ENCOUNTER 2021-07-27 13:05 | Outpatient (RCR) | payer OTHER | END 2021-08-07 15:16 | disposition home or self-care (01) | PROVIDERS: ATTEND Nurse Practitioner Family | DX: R06.02 Shortness of breath (principal); M54.50 Low back pain, unspecified; I10 Essential (primary) hypertension; E11.9 Type 2 diabetes mellitus without complications; Z86.16 Personal history of COVID-19 ==

== ENCOUNTER → 2021-09-07 | Outpatient (CLI) | payer OTHER | LOC: CARD 13:00 | PROVIDERS: ATTEND Internal Medicine Cardiovascular Disease | DX: I34.0 Nonrheumatic mitral (valve) insufficiency (principal); I10 Essential (primary) hypertension | CPT/HCPCS: 93306 ==

== ENCOUNTER → 2021-09-11 | Outpatient (RCR) | payer OTHER | END | disposition home or self-care (01) | PROVIDERS: ATTEND Physician Assistant | DX: M54.16 Radiculopathy, lumbar region (principal); E11.9 Type 2 diabetes mellitus without complications; I10 Essential (primary) hypertension; Z86.16 Personal history of COVID-19 | CPT/HCPCS: 97163; G0283 ==

== ENCOUNTER → 2021-10-09 | Outpatient (RCR) | payer OTHER | END | disposition home or self-care (01) | PROVIDERS: ATTEND Physician Assistant | DX: M54.16 Radiculopathy, lumbar region (principal); E11.9 Type 2 diabetes mellitus without complications; I10 Essential (primary) hypertension | CPT/HCPCS: 97140; G0283 ==

== ENCOUNTER → 2023-01-08 | Outpatient (CLI) | payer MEDICARE, MEDICAID ==
[~2023-01-08] MED LIST changes: +PARO-124 PO; -PARO-49 PO; +RT-ALBUTEROL SULF 2.5 MG/3 ML PRE-MIX VIAL INH ONE
== END ==
LOC: RT 14:15
PROVIDERS: ATTEND Nurse Practitioner Family
DX: J45.40 Moderate persistent asthma, uncomplicated (principal)
CPT/HCPCS: 94060; 94726; 94729

== ENCOUNTER 2023-05-29 05:38 | Outpatient (CLI) | payer MEDICARE, MEDICAID ==
[~2023-05-29] VITALS: Ht 170.2 cm; Wt 163.6 kg
[~2023-05-29 05:38] MED LIST changes: -RT-ALBUTEROL SULF 2.5 MG/3 ML PRE-MIX VIAL INH ONE
[2023-05-29] MEDS ORDERED: CETI10TA24 PO (12:07)
[2023-05-29] MEDS ORDERED: MELO15TA39 PO (12:07)
[2023-05-29] MEDS ORDERED: FLUT1BLS15 IH (12:07)
== END 2023-05-30 08:53 | disposition home or self-care (01) ==
LOC: PREOP 05:38
PROVIDERS: ATTEND Orthopaedic Surgery
DX: Z01.818 Encounter for other preprocedural examination (principal)

== ENCOUNTER 2023-06-05 05:55 | Day surgery (SDC) | payer MEDICARE, MEDICAID ==
[~2023-06-05] VITALS: Ht 170 cm; Wt 163.6 kg
[2023-06-05] VITALS (13 sets, daily range): BP systolic 103–155; BP diastolic 57–89
[~2023-06-05 05:55] MED LIST changes: +CETI10TA24 PO; +FLUT1BLS15 IH; +MELO15TA39 PO
[2023-06-05] MEDS ORDERED: ceFAZolin INJECTION 2,000 MG in NS (IVPB) 50 ML 50 ML IV ONE (06:00)
[2023-06-05] MEDS: LACTATED RINGERS 1,000 ML 1,000 ML IV PRN ×2 (06:32→08:27)
[2023-06-05] MEDS ORDERED: dexAMETHasone INJ 10 MG/ML 1 ML VIAL ONE (07:07)
[2023-06-05] MEDS ORDERED: proPOfol INJECTION 200 MG/20 ML VIAL IV ONE ×2 (07:07→07:50)
[2023-06-05] MEDS ORDERED: MIDAZOLAM INJ 2 MG/2 ML VIAL ONE (07:07)
[2023-06-05] MEDS ORDERED: fentaNYL INJECTION 100 MCG/2 ML VIAL ONE (07:07)
[2023-06-05] MEDS ORDERED: ONDANSETRON INJECTION 4 MG/2 ML (SDV) ONE (07:07)
[2023-06-05] MEDS ORDERED: LIDOCAINE PF 2% 5 ML VIAL ONE (07:07)
[2023-06-05] MEDS ORDERED: BUPIVACAINE 0.25% 30 ML VIAL ONE (07:16)
[2023-06-05] MEDS ORDERED: morphine PRESERVATIVE free 10 MG/10 ML AMP ONE (07:16)
--- NOTE | 2023-06-05 07:27 | Progress Note-Pre Operative ---
Pre-Operative Progress Note Date of Available H&P: May 29, 2023 Date H&P Reviewed: Jun 05, 2023 Time H&P Reviewed: 07:11 Changes from last HP states "left knee" correct knee is right Pre-Operative Diagnosis: right knee medial meniscus tear and chondromalacia YOVANNY RODAS MD Jun 05, 2023 07:27
--- NOTE | 2023-06-05 07:28 | Progress Note-Post Operative ---
Post-Operative Progess Note Surgeon (s)/Poultry Service Technician (s) Surgeon YOVANNY RODAS MD Poultry Service Technician: Costa Page Pre-Operative Diagnosis right knee medial meniscus tear and chondromalacia Post-Operative Diagnosis right knee lateral meniscus tear and chondromalacia of the medial femoral condyle, lateral femoral condyle, and lateral tibial plateau Procedure & Operative Findings Date of Procedure 06/05/23 Procedure Performed/Findings right knee arthroscopic partial lateral meniscectomy and chondroplasty of the medial femoral condyle, lateral femoral condyle, and lateral tibial plateau Anesthesia Type GETA Estimated Blood Loss Estimated blood loss (mL): minimal Specimens/Packing Specimens Removed none Packing: none YOVANNY RODAS MD Jun 05, 2023 07:28
[2023-06-05] MEDS ORDERED: SUCCINYLCHOLINE INJ 20 MG/1 ML 10 ML VIAL ONE (07:50)
[2023-06-05] MEDS ORDERED: morphine INJ 10 MG/ML 1ML (SYR OR VIAL) ONE (08:18)
--- NOTE | 2023-06-05 08:27 | Anesthesia-General Post-Op ---
General Patient Condition Mental Status/LOC: Same as Preop Cardiovascular: Satisfactory Nausea/Vomiting: Absent Respiratory: Satisfactory Pain: Controlled Complications: Absent Post Op Complications Complications None Follow Up Care/Instructions Patient Instructions None needed. Anesthesia/Patient Condition Patient Condition Patient was awake in PACU and doing well, no complaints, stable vital signs, no apparent adverse anesthesia problems. No complications reported per nursing. NAZIA FRANCIS DO Jun 05, 2023 08:27
[2023-06-05] MEDS ORDERED: SEVOFLURANE (ULTANE) 15 ML INHAL SOLN ONE (08:29)
[2023-06-05] MEDS ORDERED: HYDROmorphone INJECTION 2 MG/ML VIAL IV ONE (08:30)
[2023-06-05] MEDS ORDERED: morphine INJ 10 MG/ML 1ML (SYR OR VIAL) IVP ONE (08:30)
[2023-06-05] MEDS ORDERED: ONDANSETRON INJECTION 4 MG/2 ML (SDV) IVP PRN (08:30)
[2023-06-05] MEDS ORDERED: HYDROmorphone INJECTION 2 MG/ML VIAL ONE (08:38)
--- NOTE | 2023-06-05 09:38 | OPERATIVE REPORT ---
DATE OF SERVICE: 06/05/2023 PREOPERATIVE DIAGNOSES: 1. Right knee medial meniscus tear. 2. 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 3. Right knee chondromalacia of patella. POSTOPERATIVE DIAGNOSES: 1. Right knee lateral meniscus tear. 2. Right knee chondromalacia of lateral femoral condyle. 3. Right knee chondromalacia of lateral tibial plateau. 4. Right knee chondromalacia of the medial femoral condyle. PROCEDURE: 1. Right knee arthroscopic partial lateral meniscectomy. 2. Right knee arthroscopic chondroplasty of lateral femoral condyle. 3. Right knee arthroscopic chondroplasty of the lateral tibial plateau. 4. Right knee arthroscopic chondroplasty of the medial femoral condyle. SURGEON: Rufino Rodas M.D. GOLF RANGE ATTENDANT: Costa Page, who assisted throughout the procedure and closed the incisions. ANESTHESIA: General endotracheal by Dr. Edin Pal TOURNIQUET TIME: Not applicable. ESTIMATED BLOOD LOSS: Minimal. DRAINS: None. COMPLICATIONS: None. POSTOPERATIVE PLAN: Routine arthroscopy protocol. The patient was transferred to the recovery room awake and in stable condition. STATEMENT OF MEDICAL NECESSITY: The patient is a 58-year-old female with complaints of right anterior knee pain. She was tender along her medial joint line. She had pain laterally with Cyril's as well. She has patellofemoral crepitus and pain with patellar loading. Due to functional impairment and failure to improve with conservative treatment, the patient elected to proceed with surgical intervention. Examination under anesthesia revealed range of motion of 0/0/130 with negative Caridad, negative anterior and posterior drawer. No varus or valgus laxity, negative pivot shift. ARTHROSCOPIC FINDINGS: The patella demonstrated grade IV chondral loss centrally in a 10 x 10 area. Trochlea demonstrated grade IV chondral loss in the superior aspect of the groove in a 10 x 15 area. The medial and lateral gutters were clear. The ACL and PCL were intact. The medial compartment demonstrated grade 2 to 3 chondral flaps of the central portion of the femoral epicondyle in a 15 x 15 area. The posterior horn of the lateral meniscus involved approximately one-third of the posterior horn. In addition, there were grade 2 chondral flaps of the central portion of the tibial plateau and adjacent areas of the femoral condyle laterally in a 10 x 10 area. DESCRIPTION OF PROCEDURE: After risks and benefits of the procedure were discussed and questions were answered, informed consent signed and placed on the chart, the operative site was confirmed in the preoperative holding area initialed by surgeon. The patient was then transferred to the operating room and after adequate levels of general endotracheal anesthetic were obtained, a timeout was called, confirming the operative site. Examination under anesthesia was performed with the above findings noted. The right lower extremity was prepped and draped in the usual sterile fashion. The knee joint was injected with 60 mL of fluid and standard inferolateral portal was placed for the arthroscope under direct visualization and inferior medial portal was created. The menisci and cruciates were carefully probed with above findings noted. The unstable chondral flaps on the medial femoral condyle were debrided with a shaver back to a stable edge. Scope was then redirected into the lateral compartment and unstable chondral flaps in lateral femoral condyle and lateral tibial plateau were debrided with a shaver back to a stable edge. The posterior horn of the lateral meniscus was debrided with a shaver and a biter. This was carefully contoured and then probed with no further instability noted. The knee joint was copiously irrigated. The portal sites were closed with 4-0 nylon in simple interrupted fashion. Knee was injected with Duramorph. The portal sites were infiltrated with plain Marcaine. A soft dressing was applied. The patient was transported to the recovery room awake and in stable condition. Job ID: [id number] DocumentID: [id number] Dictated Date: 06/05/2023 08:16:34 Educational Therapy Teacher Date: 06/05/2023 09:36:00 Dictated By: RUFINO RODAS MD
--- NOTE | 2023-06-10 09:05 | HISTORY AND PHYSICAL ---
ADMISSION HISTORY AND PHYSICAL This will be for an outpatient surgery on 06/05/2023 for right knee arthroscopy. HISTORY: The patient is a 58-year-old female with longstanding right knee pain, catching, locking and swelling. She complains of swelling in her knee with activity limitations. She has tried rest, activity modifications and anti-inflammatories without relief. Due to functional impairment and failure to improve with conservative measures, the patient elected to proceed with surgical intervention. REVIEW OF SYSTEMS: No chest pain, no shortness of breath. No dysuria. PAST MEDICAL HISTORY: Diabetes mellitus, hypertension, hypothyroidism, reflux, sleep apnea. PAST SURGICAL HISTORY: Anal fissure repair, lumpectomy, cardiac catheterization. FAMILY HISTORY: Heart disease, hypertension. PRIMARY CARE PROVIDER: [facility]. MEDICATIONS. Lovastatin, hydrochlorothiazide, Paxil, Zyrtec, Trelegy, meloxicam, cetirizine, losartan, metoprolol, Singulair, Ventolin, levothyroxine. ALLERGIES: IV DYE AND TALWIN. SOCIAL HISTORY: The patient is a former smoker. She drinks beer occasionally. PHYSICAL EXAMINATION: GENERAL: The patient is well-developed, well-nourished, in no acute distress. HEENT: Normocephalic, atraumatic. Pupils equal, round, react to light. Oropharynx is clear. NECK: Supple. No lymphadenopathy. LUNGS: Clear to auscultation bilaterally. HEART: Regular rate and rhythm. ABDOMEN: Soft, nontender, nondistended. EXTREMITIES: The right knee demonstrates tenderness along medial joint line pain with patellar loading with crepitus noted. She has a moderate effusion. Range of motion 0-3-125. She has a negative Caridad, negative anterior and posterior drawer. No varus or valgus laxity and a negative pivot shift. IMPRESSION: Right knee chondromalacia of the patella with medial meniscus tear. PLAN: Right knee arthroscopy with partial meniscectomy and chondroplasty. The risks, benefits, options, ramifications and recovery have been discussed at length with the patient. She understands and wishes to proceed. Job ID: [id number] DocumentID: [id number] Dictated Date: 05/27/2023 12:05:12 Watch Hairspring Assembler Date: 05/27/2023 13:40:00 Dictated By: YOVANNY RODAS MD <Dictated by YOVANNY RODAS MD> <Electronically signed by YOVANNY RODAS MD> 05/30/23 [id number]
== END 2023-06-05 10:20 | disposition home or self-care (01) ==
LOC: SDC 05:55
PROVIDERS: ATTEND Orthopaedic Surgery
DX: S83.241A Other tear of medial meniscus, current injury, right knee, initial encounter (principal); M94.261 Chondromalacia, right knee; Z87.891 Personal history of nicotine dependence; G47.33 Obstructive sleep apnea (adult) (pediatric); E66.01 Morbid (severe) obesity due to excess calories; Z68.43 Body mass index [BMI] 50.0-59.9, adult
CPT/HCPCS: 84703; 87081

== ENCOUNTER 2023-07-17 05:41 | Outpatient (CLI) | payer MEDICARE, MEDICAID ==
[~2023-07-17] VITALS: Ht 170.2 cm; Wt 163.6 kg
== END 2023-07-18 08:22 | disposition home or self-care (01) ==
LOC: PREOP 05:41
PROVIDERS: ATTEND Orthopaedic Surgery
DX: Z01.818 Encounter for other preprocedural examination (principal)